=== PATIENT | male | born 1985 | race Caucasian/White ===

== ENCOUNTER 2020-09-30 12:46 | Emergency (ER) | payer MEDICAID, OTHER, SELFPAY ==
[2020-09-30 13:15] VITALS: BP 128/78; PULSE 78; RESP 18; TEMP 36.6; O2SAT 99; BMI 29.0
--- NOTE | 2020-09-30 13:19 | ED_ITS ---
HPI - Back Pain/Injury General Chief Complaint: Back Pain/Injury Stated Complaint: back pain (fall) Time Seen by Provider: 09/30/20 13:19 History of Present Illness HPI Narrative: Patient is a 35 year old male status post accidental fall yesterday. Complaining of pain to the left forearm to the left lower back. There is no bowel urinary incontinence. No head injury. No nausea no vomiting. No focal weakness. Patient is from home. No chest pain or shortness of breath no diaphoresis. No fever no chills no cough no congestion or upper respiratory symptoms pain is worse with movement. Patient denies any focal weakness. Ambulated to the emergency department. The pain is worse with certain movement. Improved with staying still. Related Data Previous Rx's Medication Instructions Recorded ibuprofen 400 mg PO Q6H PRN #20 tab 09/30/20 Allergies Allergy/AdvReac Type Severity Reaction Status Date / Time No Known Allergies Allergy Verified 09/30/20 13:15 Review of Systems Review of Systems: Constitutional: No Weight loss, No Fever, No Chills, No Night Sweats, No Fatigue, No Malaise ENT/Mouth: No Hearing loss, No Ear Pain, No Nasal Congestion, No Sinus Pain, No Hoarseness, No sore throat, No Rhinorrhea, No Swallowing Difficulty Eyes: No Eye Pain, No Swelling, No Redness, No Foreign Body, No Discharge, No Vision Changes Cardiovascular: No Chest Pain, No SOB, No Dyspnea on Exertion, No Orthopnea, No Edema, No Palpitations Respiratory: No Cough, No Sputum, No Wheezing, No Smoke Exposure, No Dyspnea Gastrointestinal: No Nausea, No Vomiting, No Diarrhea, No Constipation, No abdominal Pain, No Hematochezia, No Melena Genitourinary: no irregular bleeding, No Dysuria, No Urinary Frequency, No Hematuria, No Urinary Incontinence, No Urgency, No Flank Pain, No Urinary Flow Changes, No Hesitancy Musculoskeletal: Positive back pain Skin: No Skin Lesions, No rash Neuro: No Weakness, No Numbness, No Paresthesias, No Loss of Consciousness, No Dizziness, No Headache Psych: No Anxiety/Panic, No Depression, No SI/HI/AH/VH, No Social Issues, Heme/Lymph: No Bruising, No Bleeding,No Lymphadenopathy Endocrine: No Polyuria, No Polydipsia, No Temperature Intolerance [facility] Past Medical History Attestation statement: The following information was validated with the patient. Medical History Diabetes High blood pressure Physical Exam Vital Signs: Vital Signs: Last Vital Signs Temp 97.8 F 09/30/20 13:15 Pulse 78 09/30/20 13:15 Resp 18 09/30/20 13:15 BP 128/78 09/30/20 13:15 Pulse Ox 99 09/30/20 13:15 Body Mass Index 29.0 Appearance: Alert. Oriented X3. No acute distress. Eyes: Pupils equal, round and reactive to light. ENT: Pharynx normal. Neck: Normal inspection. Neck supple. No lymph nodes noted. No crepitus CVS: Normal heart rate and rhythm. Pulses normal. Normal S1 and S2 Respiratory: No respiratory distress. Breath sounds normal. No Wheezing. No rales Abdomen: Soft and nontender. No rigidity. No distention. good BS x4 Skin: Skin warm and dry. Normal skin color. Normal skin turgor. Back exam examination the back grossly show paraspinal muscle tenderness on the left side. There is no spinal tenderness elicited on palpation. Sensation distal extremity intact. Reflexes 2+ at patella. Extremities: No lower extremity edema. Neurovascular intact to all extremities. No Lacerations. No Rash Neuro: Oriented X 3. No motor deficit. No sensory deficit. Moving all extermities. No slurred speech MDM - Back Pain/Injury MDM Narrative Medical decision making narrative: Patient's forearm completely normal. There is no evidence of any anatomical snuffbox tenderness. There is no weakness. Range of motion intact with no swelling no signs trauma. Patient is back showed no spinal tenderness. Paraspinal muscle tenderness on the left. No bowel urinary incontinence no focal weakness no signs of cortical INR. Patient well- appearing will discharge home Motrin for pain. Currently in stable condition. Discharge Plan Discharge Clinical Impression: Strain of lumbar region Patient Disposition: Home, Self-Care Instructions: Back Pain (ED) Prescriptions: New ibuprofen 400 mg tablet 400 mg PO Q6H PRN (Reason: pain) Qty: 20 RF: 0 Referrals: Physician,Unknown [Primary Care Provider] - 2 days Print Language: Panamanian
== END 2020-09-30 13:31 | disposition home or self-care (01) ==
LOC: HO.ED 13:27
PROVIDERS: Emergency Provider Emergency Medicine Emergency Medical Services
DX: S39.012A Strain of muscle, fascia and tendon of lower back, initial encounter (principal); R53.1 Weakness; X58.XXXA Exposure to other specified factors, initial encounter; Y93.9 Activity, unspecified; Y92.9 Unspecified place or not applicable; Y99.9 Unspecified external cause status
CPT/HCPCS: 99283

== ENCOUNTER 2020-11-15 19:12 | Emergency (ER) | payer MEDICAID, OTHER, SELFPAY ==
--- NOTE | ~2020-11-15 | CT_ITS ---
EXAMINATION: CT ABDOMEN AND PELVIS WITHOUT CONTRAST CLINICAL INFORMATION: Right groin pain COMPARISON: None TECHNIQUE: Multidetector volumetric imaging was performed from the superior aspect of the liver through the pubic symphysis. Sagittal and coronal reformatted images were obtained on the technologist's workstation. This CT examination was performed using dose optimization techniques as appropriate, variously including the following: *Automated exposure control *Adjustment of mA and/or kV according to patient size (this includes techniques or standardized protocols for targeted exams where dose is matched to indication/reason for exam; i.e. extremities or head) *Use of iterative reconstruction technique DLP: 603 mGy-cm FINDINGS: LUNG BASES: The visualized lung bases are unremarkable. LIVER, GALLBLADDER, AND BILIARY TREE: The liver is normal in size, shape, and attenuation. No focal hepatic lesion or biliary ductal dilatation is present. Gallbladder unremarkable. PANCREAS: Unremarkable. SPLEEN: Unremarkable. ADRENAL GLANDS: Unremarkable. KIDNEYS AND URETERS: The kidneys are normal in size, shape, and attenuation. No hydronephrosis, hydroureter, or calculi seen. No perinephric stranding. BLADDER: Unremarkable. GASTROINTESTINAL TRACT: The small and large bowel are unremarkable. The appendix is unremarkable. ABDOMINAL WALL: No significant hernia is appreciated. LYMPH NODES: Normal. VASCULAR: Unremarkable. PELVIC VISCERA: Unremarkable. OSSEOUS STRUCTURES: Unremarkable. CT/CT abdomen pelvis wo con IMPRESSION: No significant abnormality.
[2020-11-15 19:15] VITALS: BP 141/97; PULSE 111; RESP 18; TEMP 36.6; O2SAT 96; BMI 29.2
[2020-11-15 19:33] VITALS: BP 149/102; PULSE 106; RESP 17; TEMP 37.2; O2SAT 98
--- NOTE | 2020-11-15 19:45 | ED.GENADULT ---
HPI - General Adult General Chief complaint: General Medical Stated complaint: LOWER ABD PAIN Time Seen by Provider: 11/15/20 19:43 Source: patient and presser automatic Mode of arrival: ambulatory Limitations: no limitations History of Present Illness HPI narrative: 35 years old male came in with right groin pain, pain started 8 days ago, patient described pain as severe (8/10), localized to the right groin area, sometimes it radiates to the right lower back, movement or straining make it worse, nothing make it better, describes the pain as constant, no other associated symptoms i.e. no hematuria, no dysuria, no penile discharge, no nausea, no vomiting. Pain started after carrying heavy boxes of frozen chicken. Related Data Previous Rx's Medication Instructions Recorded ibuprofen 400 mg PO Q6H PRN #20 tab 09/30/20 Allergies Allergy/AdvReac Type Severity Reaction Status Date / Time No Known Allergies Allergy Verified 09/30/20 13:15 Review of Systems Review of Systems: All other systems are reviewed and are negative Constitutional: Reports as per HPI and Reports no additional constitutional complaints Eyes: Reports as per HPI and Reports no additional eye complaints Reports system reviewed and no additional complaints, except as documented Cardiovascular: Reports as per HPI and Reports no additional cardiovascular complaints Respiratory: Reports as per HPI and Reports no additional respiratory complaints Gastrointestinal: Reports as per HPI and Reports no additional gastrointestinal complaints Genitourinary: Reports no additional female genitourinary complaints Musculoskeletal: Reports no additional musculoskeletal complaints Skin/Breast: Reports system reviewed and no additional complaints, except as docu Psychiatric: Reports no additional psychiatric complaints Endocrine: Reports no additional endocrine complaints Hematologic/Lymphatic: Reports no additional hematologic/lymphatic complaints Allergic/Immunologic: Reports no additional allergic/immunologic complaints Reports system reviewed and no additional complaints, except as documented and Reports Abnormal speech present [facility] Past Medical History Medical History Diabetes High blood pressure HLD (hyperlipidemia) Social History Social History Alcohol intake: former Smoking Status: Never smoker Use of substances other than those prescribed or required for medical reasons: No Advance Directives: No Advance Directives Information Provided: No Physical Exam Vital Signs: Vital Signs: Last Vital Signs Temp 98.9 F 11/15/20 19:33 Pulse 106 H 11/15/20 19:33 Resp 17 11/15/20 19:33 BP 149/102 H 11/15/20 19:33 Pulse Ox 98 11/15/20 19:33 Body Mass Index 29.2 Vital signs have been reviewed as normal and appeared to be correct. Blood pressure in the high range. Heart rate is tachycardic. Respiration rate normal. Temperature normal. Oxygen saturation normal. Appearance: Alert. Oriented X3. No acute distress. Head: Normal external exam. Normocephalic. Atraumatic. No Lucero signs noted. No raccoon eyes noted Eyes: PERRLA. EOMI. Conjunctiva and sclera normal. Eyelids normal. ENT: EAC normal. TM's Normal. Pharynx normal. Uvula midline. Moist mucous membranes. No trismus noted. No drooling noted. No muffled voice noted. Neck: Normal inspection. Neck supple. FROM. No adenopathy. Thyroid Normal. No meningeal signs. No neck mass noted. CVS: Normal heart rate and rhythm. Heart sound normal. No murmurs noted. Pulses normal throughout. Respiratory: No respiratory distress. Painless inspiration. Breath sounds normal. No wheezes/rales/rhonchi noted. Chest nontender. No accessory muscle usage noted or decreased air movement noted. Abdomen: Soft and tenderness to the right groin area, no rebound tenderness, no guarding.. Bowel sounds normal in all 4 quadrants. No distention noted. No organomegaly noted. No visible injury noted. exam: No testicular pain or swelling, cremasteric reflex is intact. Back: No CVA tenderness. Full range of motion noted. Skin: Skin warm and dry. Normal skin color. Normal skin turgor. No rashes/lesions/lacerations noted. Extremities: No lower extremity edema. Extremities exhibit normal range of motion. Extremities nontender. Neuro: Oriented X 3. No motor deficit. No sensory deficit. Reflexes normal. Course Course Course Narrative: Assessment and plan. 35-year-old male came in with right groin pain clinical exam and findings are consistent with a new femoral ligament sprain. Patient was instructed to apply heating pad, rest, NSAIDs. Hyperglycemia patient was treated with normal saline/insulin glucose is normalized now. Medical Decision Making Lab Data Lab results reviewed: Yes I reviewed the patient's lab results. Result diagrams: 11/15/20 19:57 11/15/20 19:57 Labs: Lab Results 11/15/20 11/15/20 11/15/20 Range/Units 19:54 19:57 19:57 WBC 9.2 (4.8-10.8) X10*3/uL RBC 5.45 (4.60-5.80) X10*6/uL Hgb 16.6 (14.0-18.0) g/dl Hct 47.1 (42-52) % MCV 86.4 (80-98) fL MCH 30.5 (27.0-33.0) pg MCHC 35.2 (31.0-36.0) g/dl RDW 11.7 (11.0-16.0) % Plt Count 217 (160-400) X10*3/uL MPV 11.3 (9.4-12.4) fL Immature Gran % (Auto) 0.1 (0.0-0.4) % Neut % (Auto) 54.1 (45-73) % Lymph % (Auto) 36.4 (20-40) % [place] % (Auto) 7.1 (2-11) % Eos % (Auto) 1.6 (0-4) % Baso % (Auto) 0.7 (0-2) % Lymph # (Auto) 3.3 (1.2-4.9) X10*3/uL [place] # (Auto) 0.7 (0.1-1.2) X10*3/uL Eos # (Auto) 0.2 (0.0-0.4) X10*3/uL Baso # (Auto) 0.1 (0.0-0.2) X10*3/uL Abs Immat Gran (auto) 0.01 (0.00-0.03) X10*3/uL Absolute Neuts (auto) 5.0 (2.0-8.3) X10*3/uL Absolute Nucleated RBC 0.000 (0.0-0.012) X10*3/uL Nucleated RBC % (auto) 0.0 (0.0-0.2) /100WBC Sodium 134 L (135-145) mmol/L Potassium 4.3 (3.3-5.1) mmol/L Chloride 98 (96-108) mmol/L Carbon Dioxide 23 (22-29) mmol/L Anion Gap 17 (12-20) BUN 14 (9-16) mg/dL Creatinine 0.81 (0.5-1.4) mg/dL Estim Creat Clear Calc 125.2 Estimated GFR > 60 POC Glucose (60-115) mg/dL Random Glucose 402 H* (60-115) mg/dL Calcium 9.5 (8.4-10.2) mg/dL Total Bilirubin 1.0 (0.0-1.0) mg/dL Direct Bilirubin 0.3 (0.0-0.5) mg/dL AST 17 (5-37) U/L ALT 40 (0-40) U/L Alkaline Phosphatase 97 (39-117) U/L Total Protein 8.0 (6.5-8.0) g/dL Albumin 4.7 (3.5-5.0) g/dL Lipase 41 (8-78) U/L Urine Color YELLOW Urine Appearance CLEAR Urine pH 5.5 (5.0-8.0) Ur Specific [place] 1.010 (1.005-1.025) Urine Protein NEG (NEG-TRACE) MG/DL Urine Glucose (UA) >=1000 H (NEG) MG/DL Urine Ketones NEG (NEG) MG/DL Urine Blood NEG (NEG) Urine Nitrite NEG (NEG) Ur Leukocyte Esterase NEG (NEG) Urine RBC 0 (0) /HPF Urine WBC 0 (0-4) /HPF Ur Squamous Epith Cells NONE /LPF Urine Bacteria NONE /LPF 11/15/20 Range/Units 21:39 WBC (4.8-10.8) X10*3/uL RBC (4.60-5.80) X10*6/uL Hgb (14.0-18.0) g/dl Hct (42-52) % MCV (80-98) fL MCH (27.0-33.0) pg MCHC (31.0-36.0) g/dl RDW (11.0-16.0) % Plt Count (160-400) X10*3/uL MPV (9.4-12.4) fL Immature Gran % (Auto) (0.0-0.4) % Neut % (Auto) (45-73) % Lymph % (Auto) (20-40) % [place] % (Auto) (2-11) % Eos % (Auto) (0-4) % Baso % (Auto) (0-2) % Lymph # (Auto) (1.2-4.9) X10*3/uL [place] # (Auto) (0.1-1.2) X10*3/uL Eos # (Auto) (0.0-0.4) X10*3/uL Baso # (Auto) (0.0-0.2) X10*3/uL Abs Immat Gran (auto) (0.00-0.03) X10*3/uL Absolute Neuts (auto) (2.0-8.3) X10*3/uL Absolute Nucleated RBC (0.0-0.012) X10*3/uL Nucleated RBC % (auto) (0.0-0.2) /100WBC Sodium (135-145) mmol/L Potassium (3.3-5.1) mmol/L Chloride (96-108) mmol/L Carbon Dioxide (22-29) mmol/L Anion Gap (12-20) BUN (9-16) mg/dL Creatinine (0.5-1.4) mg/dL Estim Creat Clear Calc Estimated GFR POC Glucose 134 H (60-115) mg/dL Random Glucose (60-115) mg/dL Calcium (8.4-10.2) mg/dL Total Bilirubin (0.0-1.0) mg/dL Direct Bilirubin (0.0-0.5) mg/dL AST (5-37) U/L ALT (0-40) U/L Alkaline Phosphatase (39-117) U/L Total Protein (6.5-8.0) g/dL Albumin (3.5-5.0) g/dL Lipase (8-78) U/L Urine Color Urine Appearance Urine pH (5.0-8.0) Ur Specific [place] (1.005-1.025) Urine Protein (NEG-TRACE) MG/DL Urine Glucose (UA) (NEG) MG/DL Urine Ketones (NEG) MG/DL Urine Blood (NEG) Urine Nitrite (NEG) Ur Leukocyte Esterase (NEG) Urine RBC (0) /HPF Urine WBC (0-4) /HPF Ur Squamous Epith Cells /LPF Urine Bacteria /LPF Imaging Data CT scan - abdomen: Radiologist's impression: No significant abnormality. Discharge Plan Discharge Clinical Impression: Acute hyperglycemia Iliofemoral (ligament) sprain Qualifiers: Encounter type: initial encounter Laterality: right Qualified Code(s): S73.111A - Iliofemoral ligament sprain of right hip, initial encounter Patient Disposition: Home, Self-Care Instructions: Hip Sprain (ED) Additional Instructions: Follow-up with your primary doctor in 1 week. Prescriptions: No Action ibuprofen 400 mg tablet 400 mg PO Q6H PRN (Reason: pain) Qty: 20 RF: 0 Stand Alone Forms: Work/School Release Interventions: ED Discharge Assessment Last Done: 11/15/20 23:06 Discharge Date/Time: 11/15/20 23:06
[2020-11-15] MEDS: Ibuprofen 600 MG TABLET PO (19:51)
[2020-11-15 20:00] LABS: MANUAL DIFF FLAG NO
[2020-11-15 20:03] LABS: Appearance Urine CLEAR; Color Urine YELLOW; Glucose Urine UA >=1000 MG/DL (NEG); Leukocyte Esterase Urine NEG (NEG); Nitrite Urine NEG (NEG); PH 5.5 (5.0-8.0); Urine Blood NEG (NEG); Urine Ketones NEG (NEG); Urine Protein NEG (NEG-TRACE)
[2020-11-15 20:03] LABS: Basophils Absolute Auto 0.1 X10*3/uL (0.0-0.2); Basophils Percent Auto 0.7 % (0-2); Eosinophils Absolute Auto 0.2 X10*3/uL (0.0-0.4); Eosinophils Percent Auto 1.6 % (0-4); Hematocrit 47.1 % (42-52); Hemoglobin 16.6 g/dl (14.0-18.0); Imm Gran Abs Auto 0.01 X10*3/uL (0.00-0.03); Imm Gran Pct Auto 0.1 % (0.0-0.4); Lymphocytes Absolute Auto 3.3 X10*3/uL (1.2-4.9); Lymphocytes Percent Auto 36.4 % (20-40); Mean Corpuscular HGB Conc 35.2 g/dl (31.0-36.0); Mean Corpuscular Hemoglobin 30.5 pg (27.0-33.0); Mean Corpuscular Volume 86.4 fL (80-98); Mean Platelet Volume 11.3 fL (9.4-12.4); Monocytes Absolute Auto 0.7 X10*3/uL (0.1-1.2); Monocytes Percent Auto 7.1 % (2-11); Neutrophils Percent Auto 54.1 % (45-73); Platelet Count 217 X10*3/uL (160-400); Red Blood Count 5.45 X10*6/uL (4.60-5.80); Red Cell Distribution Width 11.7 % (11.0-16.0); White Blood Count 9.2 X10*3/uL (4.8-10.8)
[2020-11-15 20:15] LABS: RBC Urine 0 /HPF (0); WBC Urine 0 /HPF (0-4)
[2020-11-15 20:37] LABS: Alanine Aminotransferase 40 U/L (0-40); Albumin Level 4.7 g/dL (3.5-5.0); Alkaline Phosphatase 97 U/L (39-117); Anion Gap 17 (12-20); Aspartate Amino Transferase 17 U/L (5-37); Bilirubin Direct 0.3 mg/dL (0.0-0.5); Blood Urea Nitrogen 14 mg/dL (9-16); Calcium 9.5 mg/dL (8.4-10.2); Carbon Dioxide 23 mmol/L (22-29); Chloride 98 mmol/L (96-108); Creatinine Clr Calc Pharmacy 125.2; Estimated Glomerular Filt Rate > 60; Glucose Random 402 mg/dL (60-115); Lipase 41 U/L (8-78); Potassium 4.3 mmol/L (3.3-5.1); Sodium 134 mmol/L (135-145)
[2020-11-15] MEDS: 0.9 % Sodium Chloride 1,000 ML 999 ML IVCONT (21:07)
[2020-11-15] MEDS: Insulin Regular, Human 100 UNIT/ML 3 ML VIAL 10 UNIT IVPUSH (21:10)
[2020-11-15 21:43] LABS: Glucose, Whole Blood 134 mg/dL (60-115)
== END 2020-11-15 23:06 | disposition home or self-care (01) ==
PROVIDERS: Emergency Provider Emergency Medicine; PCP Internal Medicine
DX: S73.111A Iliofemoral ligament sprain of right hip, initial encounter (principal); E11.65 Type 2 diabetes mellitus with hyperglycemia; R10.31 Right lower quadrant pain; X50.0XXA Overexertion from strenuous movement or load, initial encounter; X50.3XXA Overexertion from repetitive movements, initial encounter; Y93.9 Activity, unspecified; Y92.9 Unspecified place or not applicable; Y99.9 Unspecified external cause status; Z79.899 Other long term (current) drug therapy
CPT/HCPCS: 36415; 74176; 80048; 80076; 81001; 81003; 82947; 83690; 85025; 96361; 96374; 99284

== ENCOUNTER 2021-01-07 19:17 | Emergency (ER) | payer MEDICAID, OTHER, SELFPAY ==
--- NOTE | ~2021-01-07 | CT_ITS ---
EXAMINATION: CT ABDOMEN AND PELVIS WITHOUT CONTRAST CLINICAL INFORMATION: Right groin pain. COMPARISON: None TECHNIQUE: Multidetector volumetric imaging was performed from the superior aspect of the liver through the pubic symphysis. Sagittal and coronal reformatted images were obtained on the technologist's workstation. This CT examination was performed using dose optimization techniques as appropriate, variously including the following: *Automated exposure control *Adjustment of mA and/or kV according to patient size (this includes techniques or standardized protocols for targeted exams where dose is matched to indication/reason for exam; i.e. extremities or head) *Use of iterative reconstruction technique DLP: 665 mGy-cm FINDINGS: LUNG BASES: The visualized lung bases are unremarkable. LIVER, GALLBLADDER, AND BILIARY TREE: The liver is normal in size, shape, and attenuation. No focal hepatic lesion or biliary ductal dilatation is present. The gallbladder is unremarkable with no evidence of radiopaque gallstones, gallbladder wall thickening, or obvious pericholecystic inflammatory changes. PANCREAS: Unremarkable. SPLEEN: Unremarkable. ADRENAL GLANDS: Unremarkable. KIDNEYS AND URETERS: The kidneys are normal in size, shape, and attenuation. No hydronephrosis, hydroureter, or calculi seen. No perinephric stranding. BLADDER: Unremarkable. GASTROINTESTINAL TRACT: There is moderate stool in the colon without distention. The small bowel loops are normal caliber. There is distended with recently ingested food. ABDOMINAL WALL: No significant hernia is appreciated. LYMPH NODES: Normal. VASCULAR: Unremarkable. PELVIC VISCERA: Unremarkable. OSSEOUS STRUCTURES: Unremarkable. CT/CT abdomen pelvis wo con IMPRESSION: No acute intra-abdominal process seen.
[2021-01-07 19:48] VITALS: BP 132/86; PULSE 104; RESP 18; TEMP 36.8; O2SAT 98; BMI 29.2
--- NOTE | 2021-01-07 21:48 | ED.ABDPAIN ---
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 no hematuria, no dysuria, no penile discharge, no nausea, no vomiting. Pain started after carrying heavy boxes of frozen chicken. Patient was seen before for similar presentation was diagnosis with right groin sprain. Related Data Previous Rx's Medication Instructions Recorded ibuprofen 400 mg PO Q6H PRN #20 tab 09/30/20 Allergies Allergy/AdvReac Type Severity Reaction Status Date / Time No Known Allergies Allergy Verified 09/30/20 13:15 Review of Systems Review of Systems All other systems are reviewed and are negative Constitutional: Reports as per HPI and Reports no additional constitutional complaints Eyes: Reports as per HPI and Reports no additional eye complaints Reports system reviewed and no additional complaints, except as documented Cardiovascular: Reports as per HPI and Reports no additional cardiovascular complaints Respiratory: Reports as per HPI and Reports no additional respiratory complaints Gastrointestinal: Reports as per HPI and Reports no additional gastrointestinal complaints Genitourinary: Reports no additional female genitourinary complaints Musculoskeletal: Reports no additional musculoskeletal complaints Skin/Breast: Reports system reviewed and no additional complaints, except as docu Psychiatric: Reports no additional psychiatric complaints Endocrine: Reports no additional endocrine complaints Hematologic/Lymphatic: Reports no additional hematologic/lymphatic complaints Allergic/Immunologic: Reports no additional allergic/immunologic complaints Reports system reviewed and no additional complaints, except as documented and Reports Abnormal speech present Physical Exam Vital Signs: Vital Signs: Last Vital Signs Temp 98.2 F 01/07/21 19:48 Pulse 104 H 01/07/21 19:48 Resp 18 01/07/21 19:48 BP 132/86 01/07/21 19:48 Pulse Ox 98 01/07/21 19:48 Body Mass Index 29.2 Vital signs have been reviewed as appeared to be correct. Blood pressure normal. Heart rate is elevated. Respiration rate normal. Temperature normal. Oxygen saturation normal. Appearance: Alert. Oriented X3. No acute distress. Head: Normal external exam. Normocephalic. Atraumatic. No Lucero signs noted. No raccoon eyes noted Eyes: PERRLA. EOMI. Conjunctiva and sclera normal. Eyelids normal. ENT: TM's Normal. Pharynx normal. Uvula midline. Moist mucous membranes. No trismus noted. No drooling noted. No muffled voice noted. Neck: Normal inspection. Neck supple. FROM. No adenopathy. Thyroid Normal. No meningeal signs. No neck mass noted. CVS: Normal heart rate and rhythm. Heart sound normal. No murmurs noted. Pulses normal throughout. Respiratory: No respiratory distress. Painless inspiration. Breath sounds normal. No wheezes/rales/rhonchi noted. Chest nontender. No accessory muscle usage noted or decreased air movement noted. Abdomen: Soft, mild tenderness in the right inguinal hernia, no rebound, no guarding, no palpable mass. Bowel sounds normal in all 4 quadrants. No distention noted. No organomegaly noted. No visible injury noted. : Normal circumcised sized external genitalia, no scrotal tenderness, positive cremasteric reflexes bilaterally grossly intact. Back: No CVA tenderness. Full range of motion noted. Skin: Skin warm and dry. Normal skin color. Normal skin turgor. No rashes/lesions/lacerations noted. Extremities: No lower extremity edema. Extremities exhibit normal range of motion. Extremities nontender. Neuro: Oriented X 3. No motor deficit. No sensory deficit. Reflexes normal. Course Course Course Narrative: Assessment and plan. 35-year-old male came in with right groin strain patient work carry heavy boxes, CT of the abdomen pelvis ruled out inguinal hernia, labs are unremarkable except for slight hyperglycemia. As patient was instructed to use ibuprofen, heating pad, rest. MDM - Abdominal Pain Lab Data Attestation: I reviewed the patient's lab results. Result diagrams: 01/07/21 21:59 01/07/21 21:59 Labs: Lab Results 01/07/21 01/07/21 01/07/21 Range/Units 21:59 21:59 22:18 WBC 9.0 (4.8-10.8) X10*3/uL RBC 5.14 (4.60-5.80) X10*6/uL Hgb 15.5 (14.0-18.0) g/dl Hct 44.7 (42-52) % MCV 87.0 (80-98) fL MCH 30.2 (27.0-33.0) pg MCHC 34.7 (31.0-36.0) g/dl RDW 11.8 (11.0-16.0) % Plt Count 247 (160-400) X10*3/uL MPV 10.5 (9.4-12.4) fL Immature Gran % (Auto) 0.2 (0.0-0.4) % Neut % (Auto) 47.0 (45-73) % Lymph % (Auto) 43.7 H (20-40) % [place] % (Auto) 6.7 (2-11) % Eos % (Auto) 2.0 (0-4) % Baso % (Auto) 0.4 (0-2) % Lymph # (Auto) 3.9 (1.2-4.9) X10*3/uL [place] # (Auto) 0.6 (0.1-1.2) X10*3/uL Eos # (Auto) 0.2 (0.0-0.4) X10*3/uL Baso # (Auto) 0.0 (0.0-0.2) X10*3/uL Abs Immat Gran (auto) 0.02 (0.00-0.03) X10*3/uL Absolute Neuts (auto) 4.2 (2.0-8.3) X10*3/uL Absolute Nucleated RBC 0.000 (0.0-0.012) X10*3/uL Nucleated RBC % (auto) 0.0 (0.0-0.2) /100WBC Sodium 135 (135-145) mmol/L Potassium 4.0 (3.3-5.1) mmol/L Chloride 101 (96-108) mmol/L Carbon Dioxide 24 (22-29) mmol/L Anion Gap 14 (12-20) BUN 19 H (9-16) mg/dL Creatinine 0.76 (0.5-1.4) mg/dL Estim Creat Clear Calc 133.4 Estimated GFR > 60 Random Glucose 184 H D (60-115) mg/dL Calcium 8.9 D (8.4-10.2) mg/dL Total Bilirubin 1.0 (0.0-1.0) mg/dL Direct Bilirubin 0.3 (0.0-0.5) mg/dL AST 28 D (5-37) U/L ALT 61 H (0-40) U/L Alkaline Phosphatase 87 (39-117) U/L Total Protein 7.9 (6.5-8.0) g/dL Albumin 4.5 (3.5-5.0) g/dL Lipase 25 (8-78) U/L Urine Color YELLOW Urine Appearance CLEAR Urine pH 7.0 (5.0-8.0) Ur Specific [place] 1.020 (1.005-1.025) Urine Protein NEG (NEG-TRACE) MG/DL Urine Glucose (UA) 500 H (NEG) MG/DL Urine Ketones NEG (NEG) MG/DL Urine Blood NEG (NEG) Urine Nitrite NEG (NEG) Ur Leukocyte Esterase NEG (NEG) Imaging Data CT scan - abdomen: Radiologist's impression: No acute intra-abdominal process seen. Discharge Plan Discharge Prescriptions: No Action ibuprofen 400 mg tablet 400 mg PO Q6H PRN (Reason: pain) Qty: 20 RF: 0 PMFSH Past Medical History Medical History Diabetes High blood pressure HLD (hyperlipidemia) Social History Social History Alcohol intake: former Smoking Status: Never smoker Advance Directives: No Advance Directives Information Provided: No
[2021-01-07 22:11] LABS: MANUAL DIFF FLAG NO
[2021-01-07 22:17] LABS: Basophils Percent Auto 0.4 % (0-2); Eosinophils Absolute Auto 0.2 X10*3/uL (0.0-0.4); Hematocrit 44.7 % (42-52); Hemoglobin 15.5 g/dl (14.0-18.0); Imm Gran Abs Auto 0.02 X10*3/uL (0.00-0.03); Imm Gran Pct Auto 0.2 % (0.0-0.4); Lymphocytes Absolute Auto 3.9 X10*3/uL (1.2-4.9); Lymphocytes Percent Auto 43.7 % (20-40); Mean Corpuscular HGB Conc 34.7 g/dl (31.0-36.0); Mean Corpuscular Hemoglobin 30.2 pg (27.0-33.0); Mean Platelet Volume 10.5 fL (9.4-12.4); Monocytes Absolute Auto 0.6 X10*3/uL (0.1-1.2); Monocytes Percent Auto 6.7 % (2-11); Neutrophils Absolute Auto 4.2 X10*3/uL (2.0-8.3); Platelet Count 247 X10*3/uL (160-400); Red Blood Count 5.14 X10*6/uL (4.60-5.80); Red Cell Distribution Width 11.8 % (11.0-16.0)
[2021-01-07 22:30] LABS: Glucose Urine UA 500 MG/DL (NEG); Leukocyte Esterase Urine NEG (NEG); Nitrite Urine NEG (NEG); Urine Blood NEG (NEG); Urine Ketones NEG (NEG); Urine Protein NEG (NEG-TRACE)
[2021-01-07 22:31] LABS: Appearance Urine CLEAR; Color Urine YELLOW
[2021-01-07 22:47] LABS: Alanine Aminotransferase 61 U/L (0-40); Albumin Level 4.5 g/dL (3.5-5.0); Alkaline Phosphatase 87 U/L (39-117); Anion Gap 14 (12-20); Aspartate Amino Transferase 28 U/L (5-37); Bilirubin Direct 0.3 mg/dL (0.0-0.5); Blood Urea Nitrogen 19 mg/dL (9-16); Calcium 8.9 mg/dL (8.4-10.2); Carbon Dioxide 24 mmol/L (22-29); Chloride 101 mmol/L (96-108); Creatinine Clr Calc Pharmacy 133.4; Estimated Glomerular Filt Rate > 60; Glucose Random 184 mg/dL (60-115); Lipase 25 U/L (8-78); Sodium 135 mmol/L (135-145); Total Protein 7.9 g/dL (6.5-8.0)
== END 2021-01-07 23:28 | disposition home or self-care (01) ==
PROVIDERS: Emergency Provider Emergency Medicine
DX: S76.811A Strain of other specified muscles, fascia and tendons at thigh level, right thigh, initial encounter (principal); X50.0XXA Overexertion from strenuous movement or load, initial encounter; I10 Essential (primary) hypertension; E11.9 Type 2 diabetes mellitus without complications; E78.5 Hyperlipidemia, unspecified; Y93.9 Activity, unspecified; Y92.9 Unspecified place or not applicable; Y99.9 Unspecified external cause status
CPT/HCPCS: 36415; 74176; 80048; 80076; 81003; 83690; 85025; 99283; 99284

== ENCOUNTER 2021-01-14 22:08 | Emergency (ER) | payer MEDICAID, SELFPAY ==
--- NOTE | ~2021-01-14 | US_ITS ---
EXAMINATION: US RIGHT GROIN, LIMITED/FOLLOW UP CLINICAL INFORMATION: Question of right inguinal hernia COMPARISON: CT 01/07/2021 and 11/15/2020 TECHNIQUE: Linear probe was used to examine the area of concern in the right groin. FINDINGS: There is a solid appearing area measuring 3.9 x 1.8 cm in the region of the right groin. In retrospect, there is an area of increased density seen in the fat on the CT scan in the supra inguinal region on the CT scan measuring 3.6 x 3.5 x 2.5 cm which correlates with this. This is not a hernia (at least not on the CT scan) but may be a lipoma or an area of inflammation in the fat. On the CT scan from 11/15/2020 this was smaller and barely apparent. US/US pelvic limited IMPRESSION: There is a somewhat ill-defined mass present in the right lower quadrant which appears to correlate with an area of higher density seen in the a rounded area of fat in the mesentery just behind the abdominal wall. This has increased in size from 11/15/2020 to 01/07/2021. This probably represents a lipoma or possibly a focal area of inflammation in the fat. If pain continues, would recommend MRI for further evaluation.
[2021-01-14 22:14] VITALS: BP 142/70; BP 143/87; PULSE 106; PULSE 98; RESP 17; TEMP 36.8; O2SAT 97; O2SAT 98; BMI 31.1
--- NOTE | 2021-01-14 22:42 | PC.NURSE ---
THIS NURSE AT BEDSIDE WITH DR BOSS FOR EXAM OF GROIN PAIN.
--- NOTE | 2021-01-14 22:46 | ED.MALEGU ---
HPI - Male Genitourinary General Chief complaint: General Medical Stated complaint: BILATERAL LEG PAIN,WEAKNESS Time Seen by Provider: 01/14/21 22:45 Source: patient Mode of arrival: ambulatory Limitations: no limitations History of Present Illness HPI Narrative: Patient been having pain in right groin area since 11/27 after lifting heavy stuff been here [address] scan were done both were negative last visit was 01/07 patient still complaining of pain and swelling specially on standing on the right suprapubic area. No nausea no vomiting no urinary complaints Related Data Previous Rx's Medication Instructions Recorded ibuprofen 400 mg PO Q6H PRN #20 tab 09/30/20 cyclobenzaprine 10 mg PO TID PRN #14 tab 01/07/21 ibuprofen 600 mg PO Q8H PRN #20 tab 01/07/21 doxycycline hyclate 100 mg PO BID #20 cap 01/15/21 ibuprofen 600 mg PO Q6H PRN #20 tab 01/15/21 Allergies Allergy/AdvReac Type Severity Reaction Status Date / Time No Known Allergies Allergy Verified 09/30/20 13:15 Review of Systems Review of Systems: Constitutional : No Weight loss, No Fever, No Chills ENT/Mouth : No sore throat, No Rhinorrhea Eyes: No Eye Pain, No Swelling Cardiovascular : No Chest Pain, no palpitations Respiratory : No Cough, No Sputum, no shortness of breath Gastrointestinal : no Nausea, No Vomiting, No Diarrhea, +abdominal Pain, no black stools Genitourinary : No Dysuria, No Urinary Frequency Musculoskeletal : No joint pain, No Myalgias, No Joint Swelling Skin : No Skin Lesions, No rash Neuro : No Weakness, No Numbness, No Dizziness, No Headache Psych : No Anxiety/Panic, No Depression Heme/Lymph: No Bruising, No Lymphadenopathy Endocrine : No Polyuria, No Polydipsia All other systems reviewed and are negative [facility] Past Medical History Medical History Diabetes High blood pressure HLD (hyperlipidemia) Social History Social History Alcohol intake: never Smoking Status: Never smoker Smoked in Last 30 Days: No Use of substances other than those prescribed or required for medical reasons: No Advance Directives: No Advance Directives Information Provided: Yes Physical Exam Vital Signs: Vital Signs: Last Vital Signs Temp 98.2 F 01/14/21 22:14 Pulse 108 H 01/15/21 00:30 Resp 16 01/15/21 00:30 BP 142/92 H 01/15/21 00:30 Pulse Ox 97 01/15/21 00:30 Body Mass Index 31.1 Const: General: comfortable and no acute distress HENMT: Head: Yes normocephalic and Yes atraumatic Eyes: General: appearance normal, both eyes and all related structures Neck: Neck: Yes normal visual inspection Resp: Effort & Inspection: normal respiratory effort Auscultation: clear to auscultation bilaterally Cardio: Palpation: normal PMI Rate: regular rate Rhythm: regular rhythm Heart sounds: S1 normal heart sound present and S2 normal heart sound present Peripheral pulses: Peripheral pulses 2+ throughout GI: Inspection: Yes normal to inspection Palpation (GI): Soft to palpation and nontender Auscultation: normal bowel sounds : Male General Exam: Yes normal external exam Penis: normal penis Meatus: meatus normal Scrotum: scrotum normal Testes: Testes normal, testicular lie normal and epididymides normal Male genitals images: 1. About 2 cm non reducible swelling in right suprapubic area ? Lipoma/cyst MDM - Male Genitourinary MDM Narrative Medical decision making narrative: Patient ultrasound showed small fatty tissue inflammation possible lipoma. Will discharge patient home on doxycycline ibuprofen advised to follow-up with surgeon Medical Records Attestation: I reviewed the patient's medical records. Lab Data Attestation: I reviewed the patient's lab results. Labs: Lab Results 01/14/21 Range/Units 22:41 Urine Color STRAW Urine Appearance CLEAR Urine pH 6.0 (5.0-8.0) Ur Specific [place] 1.010 (1.005-1.025) Urine Protein NEG (NEG-TRACE) MG/DL Urine Glucose (UA) >=1000 H (NEG) MG/DL Urine Ketones NEG (NEG) MG/DL Urine Blood NEG (NEG) Urine Nitrite NEG (NEG) Ur Leukocyte Esterase NEG (NEG) Urine RBC 0 (0) /HPF Urine WBC 0-2 (0-4) /HPF Ur Squamous Epith Cells NONE /LPF Urine Bacteria NONE /LPF Imaging Data US - abdomen: Attestation: I personally reviewed and interpreted this imaging study as follows: My impression: Signed Patient: Marlon SanchezMR#: [id number]: [id number]:[id number]/Sex: 35 / MADM Date: 01/14/21Loc: EDAttending Dr: Ordering Physician: Navneet Bradshaw MD Date of Service: 01/14/21 Procedure(s): US pelvic limited Accession Number(s): [id number] cc: Navneet Bradshaw MD~ EXAMINATION: US RIGHT GROIN, LIMITED/FOLLOW UP CLINICAL INFORMATION: Question of right inguinal hernia COMPARISON: CT 01/07/2021 and 11/15/2020 TECHNIQUE: Linear probe was used to examine the area of concern in the right groin. FINDINGS: There is a solid appearing area measuring 3.9 x 1.8 cm in the region of the right groin. In retrospect, there is an area of increased density seen in the fat on the CT scan in the supra inguinal region on the CT scan measuring 3.6 x 3.5 x 2.5 cm which correlates with this. This is not a hernia (at least not on the CT scan) but may be a lipoma or an area of inflammation in the fat. On the CT scan from 11/15/2020 this was smaller and barely apparent. US/US pelvic limited IMPRESSION: There is a somewhat ill-defined mass present in the right lower quadrant which appears to correlate with an area of higher density seen in the a rounded area of fat in the mesentery just behind the abdominal wall. This has increased in size from 11/15/2020 to 01/07/2021. This probably represents a lipoma or possibly a focal area of inflammation in the fat. If pain continues, would recommend MRI for further evaluation. Discharge Plan Discharge Clinical Impression: Lipoma of abdominal wall Patient Disposition: Home, Self-Care Instructions: Lipoma (ED), Soft Tissue Mass (ED) Additional Instructions: Take antibiotics and pain medicine as advised and follow-up with surgeon [place] antibi?ticos y analg?sicos seg?n las recomendaciones y alvina un seguimiento con el cirujano. Prescriptions: New doxycycline hyclate 100 mg capsule 100 mg PO BID Qty: 20 RF: 0 ibuprofen 600 mg tablet 600 mg PO Q6H PRN (Reason: pain) Qty: 20 RF: 0 No Action ibuprofen 400 mg tablet 400 mg PO Q6H PRN (Reason: pain) Qty: 20 RF: 0 cyclobenzaprine 10 mg tablet 10 mg PO TID PRN (Reason: muscle spasm) Qty: 14 RF: 0 ibuprofen 600 mg tablet 600 mg PO Q8H PRN (Reason: pain) Qty: 20 RF: 0 Referrals: Dennis Gonzalez MD [Physician] - 1 week Print Language: Lithuanian
[2021-01-14 22:53] LABS: Glucose Urine UA >=1000 MG/DL (NEG); Leukocyte Esterase Urine NEG (NEG); Nitrite Urine NEG (NEG); Urine Blood NEG (NEG); Urine Ketones NEG (NEG); Urine Protein NEG (NEG-TRACE)
[2021-01-14 23:06] LABS: Appearance Urine CLEAR; Color Urine STRAW
[2021-01-14 23:18] LABS: RBC Urine 0 /HPF (0); WBC Urine 0-2 /HPF (0-4)
[2021-01-15 00:30] VITALS: BP 142/92; PULSE 108; RESP 16; O2SAT 97
[2021-01-15] MEDS: Ibuprofen 600 MG TABLET PO (00:31)
== END 2021-01-15 00:36 | disposition home or self-care (01) ==
PROVIDERS: Emergency Provider Internal Medicine
DX: D17.5 Benign lipomatous neoplasm of intra-abdominal organs (principal); R10.31 Right lower quadrant pain; E11.9 Type 2 diabetes mellitus without complications; E78.5 Hyperlipidemia, unspecified
CPT/HCPCS: 76857; 81001; 81003; 99284

== ENCOUNTER → 2021-02-08 10:49 | Outpatient (BNVA) | payer MEDICAID, SELFPAY | PROVIDERS: PCP Family Medicine; Visit Provider Surgery | DX: R10.31 Right lower quadrant pain (principal) | CPT/HCPCS: 99202 ==

== ENCOUNTER → 2021-02-13 10:45 | Outpatient (BNVA) | payer MEDICAID, SELFPAY | PROVIDERS: PCP Family Medicine; Visit Provider Surgery | DX: K40.90 Unilateral inguinal hernia, without obstruction or gangrene, not specified as recurrent (principal); Z79.899 Other long term (current) drug therapy | CPT/HCPCS: 99212 ==

== ENCOUNTER 2021-02-23 19:10 | Emergency (ER) | payer MEDICAID, OTHER, SELFPAY ==
--- NOTE | ~2021-02-23 | CT_ITS ---
EXAMINATION: CT ABDOMEN AND PELVIS WITH CONTRAST CLINICAL INFORMATION: Right groin pain. Assess for hernia. COMPARISON: CT scan abdomen pelvis 05/09/2021 TECHNIQUE: Multidetector volumetric images were obtained from the superior aspect of the liver through the pubic symphysis following administration 85 mL of Omnipaque 350 intravenous contrast. Sagittal and coronal reformatted images were obtained on the technologist's workstation. Oral contrast: No This CT examination was performed using dose optimization techniques as appropriate, variously including the following: *Automated exposure control *Adjustment of mA and/or kV according to patient size (this includes techniques or standardized protocols for targeted exams where dose is matched to indication/reason for exam; i.e. extremities or head) *Use of iterative reconstruction technique DLP: 666 mGy-cm FINDINGS: LUNG BASES: The visualized lung bases are unremarkable. LIVER, GALLBLADDER, AND BILIARY TREE: Low attenuation of liver parenchyma due to fatty change. No focal liver lesion or intrahepatic bile duct dilatation. The gallbladder is unremarkable with no evidence of radiopaque gallstones, gallbladder wall thickening, or obvious pericholecystic inflammatory changes. PANCREAS: Unremarkable. SPLEEN: Unremarkable. ADRENAL GLANDS: Unremarkable. KIDNEYS AND URETERS: The kidneys are normal in size, shape, and attenuation. No hydronephrosis, hydroureter, or calculi seen. No perinephric stranding. BLADDER: Unremarkable. GASTROINTESTINAL TRACT: The small and large bowel are unremarkable. The appendix is unremarkable. ABDOMINAL WALL: There is a fat-containing right-sided inguinal hernia. This measures 4.2 x 2.9 cm in width. Measures greater than 7 cm of length. Lower margin of the herniated fat is not included in the study. Defect in the inguinal canal measures 1.8 cm transverse coronal image 30 There is no involvement of the bowel. Herniated fat is slightly edematous but there is no focal fluid collection. LYMPH NODES: Normal. VASCULAR: Unremarkable. PELVIC VISCERA: Unremarkable. OSSEOUS STRUCTURES: Unremarkable. CT/CT abdomen pelvis w con IMPRESSION: 1. Fat-containing right inguinal hernia. Herniated fat is slightly edematous but there is no focal fluid collections. There is no involvement with bowel. The bowel is unremarkable. 2. Mild diffuse fatty change of liver.
[2021-02-23 20:23] VITALS: BP 132/90; PULSE 103; RESP 16; TEMP 36.9; O2SAT 96; BMI 29.9
[2021-02-23 21:43] LABS: MANUAL DIFF FLAG NO
[2021-02-23 21:45] LABS: Basophils Absolute Auto 0.1 X10*3/uL (0.0-0.2); Basophils Percent Auto 0.7 % (0-2); Eosinophils Absolute Auto 0.2 X10*3/uL (0.0-0.4); Eosinophils Percent Auto 1.9 % (0-4); Hematocrit 46.8 % (42-52); Hemoglobin 16.5 g/dl (14.0-18.0); Imm Gran Abs Auto 0.03 X10*3/uL (0.00-0.03); Imm Gran Pct Auto 0.3 % (0.0-0.4); Lymphocytes Absolute Auto 4.1 X10*3/uL (1.2-4.9); Lymphocytes Percent Auto 34.6 % (20-40); Mean Corpuscular HGB Conc 35.3 g/dl (31.0-36.0); Mean Corpuscular Hemoglobin 30.3 pg (27.0-33.0); Mean Platelet Volume 10.7 fL (9.4-12.4); Monocytes Absolute Auto 0.8 X10*3/uL (0.1-1.2); Monocytes Percent Auto 6.8 % (2-11); Neutrophils Absolute Auto 6.5 X10*3/uL (2.0-8.3); Neutrophils Percent Auto 55.7 % (45-73); Platelet Count 265 X10*3/uL (160-400); Red Blood Count 5.44 X10*6/uL (4.60-5.80); Red Cell Distribution Width 12.2 % (11.0-16.0); White Blood Count 11.7 X10*3/uL (4.8-10.8)
[2021-02-23 21:51] LABS: Prothrombin Time 12.3 SEC (10.8-13.0)
--- NOTE | 2021-02-23 21:51 | ED_ITS ---
HPI - Abdominal Pain General Chief Complaint: Skin/Abscess/Foreign Body Stated Complaint: Leg swelling/Pain Time Seen by Provider: 02/23/21 21:51 Source: patient Mode of arrival: ambulatory History of Present Illness HPI narrative: 35-year-old male without significant past medical history who presents with 2 years of worsening swelling at the right groin that has progressively worsened with time and now patient states is worse in the morning and increases throughout the day with pain on coughing, standing and currently complains of some mild nausea without vomiting but still able to have bowel movements and pass flatus. Patient denies any fevers but reports chills and denies any urinary pain/burning/frequency. Related Data Previous Rx's Medication Instructions Recorded ibuprofen 400 mg PO Q6H PRN #20 tab 09/30/20 cyclobenzaprine 10 mg PO TID PRN #14 tab 01/07/21 ibuprofen 600 mg PO Q8H PRN #20 tab 01/07/21 doxycycline hyclate 100 mg PO BID #20 cap 01/15/21 ibuprofen 600 mg PO Q6H PRN #20 tab 01/15/21 Allergies Allergy/AdvReac Type Severity Reaction Status Date / Time No Known Allergies Allergy Verified 02/13/21 10:48 Review of Systems Review of Systems Pertinent positives and negatives as stated in HPI 10 point review of systems is otherwise negative. Physical Exam Vital Signs: Vital Signs: Last Vital Signs Temp 98.2 F 02/23/21 22:08 Pulse 100 02/23/21 22:08 Resp 16 02/23/21 22:08 BP 128/90 H 02/23/21 22:08 Pulse Ox 96 02/23/21 22:08 Body Mass Index 29.9 VITAL SIGNS: Reviewed. GENERAL: Well developed, well nourished, in no acute distress. HEAD: Normocephalic/atraumatic EYES: PERRLA, EOMI EARS: Ext canals without abnormality OROPHARYNX: no oral lesions noted, posterior pharynx clear NECK: Supple, no adenopathy LUNGS: Normal breath sounds. No adventitious sounds or accessory muscle use. SpO2<96> CARDIOVASCULAR: Regular rate and rhythm without noted murmurs ABDOMEN: Soft, non-tender, non-distended with bowel sounds. : (Operations Support Analyst-Freddy) obvious swelling over the right inguinal area without overlying skin changes and on examination for hernia there is noted intestine within the scrotal sac and pain with any attempt to reduce. SKIN: Inspection of the skin reveals no rashes NEUROLOGIC: Alert and oriented x 4. Course Course Course Narrative: 35-year-old male with history and clinical presentation suspicious for strangulated/incarcerated right inguinal hernia. Will obtain labs and CT scan. Combination analgesics also provided. On review of all investigations patient has a fat containing right inguinal hernia with some surrounding stranding as well as a mild leukocytosis. In addition on re-evaluation patient states his pain has not been well controlled. This case was discussed with Dr. Gonzalez who will admit the patient. MDM - Abdominal Pain Lab Data Result diagrams: 02/23/21 21:40 02/23/21 21:40 Labs: Lab Results 02/23/21 02/23/21 02/23/21 Range/Units 21:40 21:40 21:40 WBC 11.7 H (4.8-10.8) X10*3/uL RBC 5.44 (4.60-5.80) X10*6/uL Hgb 16.5 (14.0-18.0) g/dl Hct 46.8 (42-52) % MCV 86.0 (80-98) fL MCH 30.3 (27.0-33.0) pg MCHC 35.3 (31.0-36.0) g/dl RDW 12.2 (11.0-16.0) % Plt Count 265 (160-400) X10*3/uL MPV 10.7 (9.4-12.4) fL Immature Gran % (Auto) 0.3 (0.0-0.4) % Neut % (Auto) 55.7 (45-73) % Lymph % (Auto) 34.6 (20-40) % [place] % (Auto) 6.8 (2-11) % Eos % (Auto) 1.9 (0-4) % Baso % (Auto) 0.7 (0-2) % Lymph # (Auto) 4.1 (1.2-4.9) X10*3/uL [place] # (Auto) 0.8 (0.1-1.2) X10*3/uL Eos # (Auto) 0.2 (0.0-0.4) X10*3/uL Baso # (Auto) 0.1 (0.0-0.2) X10*3/uL Abs Immat Gran (auto) 0.03 (0.00-0.03) X10*3/uL Absolute Neuts (auto) 6.5 (2.0-8.3) X10*3/uL Absolute Nucleated RBC 0.000 (0.0-0.012) X10*3/uL Nucleated RBC % (auto) 0.0 (0.0-0.2) /100WBC PT 12.3 (10.8-13.0) SEC INR 1.0 (0.9-1.1) Sodium 137 (135-145) mmol/L Potassium 4.4 (3.3-5.1) mmol/L Chloride 102 (96-108) mmol/L Carbon Dioxide 21 L (22-29) mmol/L Anion Gap 18 (12-20) BUN 23 H (9-16) mg/dL Creatinine 0.79 (0.5-1.4) mg/dL Estim Creat Clear Calc 128.4 Estimated GFR > 60 POC Glucose (60-115) mg/dL Random Glucose 220 H (60-115) mg/dL Calcium 10.1 D (8.4-10.2) mg/dL // Range/Units 23:12 WBC (4.8-10.8) X10*3/uL RBC (4.60-5.80) X10*6/uL Hgb (14.0-18.0) g/dl Hct (42-52) % MCV (80-98) fL MCH (27.0-33.0) pg MCHC (31.0-36.0) g/dl RDW (11.0-16.0) % Plt Count (160-400) X10*3/uL MPV (9.4-12.4) fL Immature Gran % (Auto) (0.0-0.4) % Neut % (Auto) (45-73) % Lymph % (Auto) (20-40) % [place] % (Auto) (2-11) % Eos % (Auto) (0-4) % Baso % (Auto) (0-2) % Lymph # (Auto) (1.2-4.9) X10*3/uL [place] # (Auto) (0.1-1.2) X10*3/uL Eos # (Auto) (0.0-0.4) X10*3/uL Baso # (Auto) (0.0-0.2) X10*3/uL Abs Immat Gran (auto) (0.00-0.03) X10*3/uL Absolute Neuts (auto) (2.0-8.3) X10*3/uL Absolute Nucleated RBC (0.0-0.012) X10*3/uL Nucleated RBC % (auto) (0.0-0.2) /100WBC PT (10.8-13.0) SEC INR (0.9-1.1) Sodium (135-145) mmol/L Potassium (3.3-5.1) mmol/L Chloride (96-108) mmol/L Carbon Dioxide (22-29) mmol/L Anion Gap (12-20) BUN (9-16) mg/dL Creatinine (0.5-1.4) mg/dL Estim Creat Clear Calc Estimated GFR POC Glucose 236 H (60-115) mg/dL Random Glucose (60-115) mg/dL Calcium (8.4-10.2) mg/dL Discharge Plan Discharge Clinical Impression: Right inguinal hernia Patient Disposition: Admitted As Inpatient Prescriptions: No Action ibuprofen 400 mg tablet 400 mg PO Q6H PRN (Reason: pain) Qty: 20 RF: 0 cyclobenzaprine 10 mg tablet 10 mg PO TID PRN (Reason: muscle spasm) Qty: 14 RF: 0 ibuprofen 600 mg tablet 600 mg PO Q8H PRN (Reason: pain) Qty: 20 RF: 0 doxycycline hyclate 100 mg capsule 100 mg PO BID Qty: 20 RF: 0 ibuprofen 600 mg tablet 600 mg PO Q6H PRN (Reason: pain) Qty: 20 RF: 0 PMFSH Past Medical History Source: nursing notes reviewed Medical History Diabetes High blood pressure HLD (hyperlipidemia) Right groin pain Right inguinal hernia Social History Social History Alcohol intake: never Smoking Status: Former smoker Use of substances other than those prescribed or required for medical reasons: No Advance Directives: No Advance Directives Information Provided: Yes
[2021-02-23] MEDS: Acetaminophen 325 MG TABLET 975 MG PO (22:03)
[2021-02-23] MEDS: 0.9 % Sodium Chloride 1,000 ML 999 ML IV (22:03)
[2021-02-23] MEDS: Ketorolac Tromethamine 15 MG/ML VIAL IVPUSH (22:03)
[2021-02-23 22:08] VITALS: BP 128/90; PULSE 100; RESP 16; TEMP 36.8; O2SAT 96
[2021-02-23 22:14] LABS: Anion Gap 18 (12-20); Blood Urea Nitrogen 23 mg/dL (9-16); Calcium 10.1 mg/dL (8.4-10.2); Carbon Dioxide 21 mmol/L (22-29); Chloride 102 mmol/L (96-108); Creatinine Clr Calc Pharmacy 128.4; Estimated Glomerular Filt Rate > 60; Glucose Random 220 mg/dL (60-115); Potassium 4.4 mmol/L (3.3-5.1); Sodium 137 mmol/L (135-145)
[2021-02-23] MEDS: iohexoL 350 MG/ML 100 ML INFUS..BTL IV (23:02)
[2021-02-23 23:16] LABS: Glucose, Whole Blood 236 mg/dL (60-115)
[2021-02-24] VITALS (15 sets, daily range): BP systolic 123–152; BP diastolic 64–102; PULSE 84–106; RESP 14–17; TEMP 36.1–36.9; O2SAT 96–99
[2021-02-24 02:08] LABS: COVID-19 Test Negative (Negative); IDNOW Serial# 9DD0AD1C
--- NOTE | 2021-02-24 02:55 | PC.NURSE ---
ASSUMING CARE OF THE PATIENT, MOVED FROM [facility] TO MAIN EMERGENCY DEPARTMENT TO ROOM 21. PATIENT RESTING COMFORTABLY ON STRETCHER, NO DISTRESS NOTED. WHEN TRANSPORTED TO ROOM.
--- NOTE | 2021-02-24 04:48 | PC.NURSE ---
DISCUSSED PLAN OF CARE WITH DR. WALTON NO ORDERS HAVE BEEN PLACED FROM SURGERY AT THIS TIME. DR. WALTON STATING SHE HAS REACHED OUT TO DR. RAGLAND AND DISCUSSED THE CASE, PROVIDER IS PLANNING ON REACHING OUT AGAIN WITHIN THE NEXT 15 MINUTES TO CONFIRM ADMISSION. PLAN FOR PATIENT UNTIL HEARING DIFFERENTLY FROM SURGERY WILL BE TO KEEP PATIENT NPO. PATIENT IS RESTING COMFORTABLY ON STRETCHER NO DISTRESS NOTED AT THIS TIME. WILL CONTINUE TO MONITOR AND FOLLOW UP ON ADMISSION ORDERS.
--- NOTE | 2021-02-24 05:20 | PC.NURSE ---
DR. RAGLAND CONTACTING ED PROVIDER, PLAN OF CARE IS FOR ADMISSION, PATIENT WILL REMAIN NPO. PAIN IS MANAGED AT THIS TIME. PATIENT RESTING WITH EYES CLOSED, NO FACIAL GRIMACE OR GUARDING AT THIS TIME.
[2021-02-24] MEDS: Dextrose 5 % and 0.9 % NaCl 1,000 ML 100 ML IVCONT (05:55)
--- NOTE | 2021-02-24 07:16 | PM.HPGS ---
History of Present Illness History of Present Illness Date of Service: 02/28/21 Chief complaint: painful right inguinal hernia with incacerated fat Narrative: Marlon Nolasco is a 35 year old male ER last night because of pain on the right groin. He is known to me. I had been seeing him in the office for a right inguinal hernia. He had multiple visits to the ER because of pain. He had an ultrasound in January 2021 which showed abnormal fat in right lower quadrant within the peritoneum but this was not where he is pointing to was were his pain was. He had been describing periodic swelling and pain on the right groin all the way to the scrotum. He says that he would see a mass that would reduce on and off. Overall clinical rings were suggestive of right inguinal hernia. He was actually scheduled to have right inguinal hernia repair on 03/16/2021. He says his pain was worse last night so he decided to come the emergency room. He feels that he has severe pain and he feels that he cannot wait for March 16 to have the surgery done. According to the ER physician, she had felt bowel loops initially on examination last night. The patient's CAT scan showed fat contents within a right inguinal hernia with some haziness consistent with edema. The patient denies any GI complaints. He states that he has been having this problem with right groin pain for about 3 months now. Review of Systems Constitutional: Constitutional: Denies chills and Denies fever(s) Cardiovascular: Cardiovascular: Denies chest pain, Denies dyspnea and Denies dyspnea on exertion Respiratory: Respiratory: Denies cough, Denies dyspnea and Denies dyspnea on exertion Gastrointestinal: Gastrointestinal: Denies hematochezia, Denies change in bowel habits and Denies vomiting Genitourinary: Genitourinary: Denies hematuria and Denies difficulty urinating Musculoskeletal: Musculoskeletal: Denies back pain and Denies limited range of motion Neurologic: Denies focal weakness and Denies convulsions Psychiatric: Psychiatric: Denies depression and Denies mood swings PMFSH Past Medical History Medical History Diabetes High blood pressure HLD (hyperlipidemia) Right groin pain Right inguinal hernia Social History Social History (Updated 02/24/21 @ 14:00 by Valeria Rock) Alcohol intake: never Smoking Status: Former smoker Second Hand Smoke Exposure: No Substance Use Type: Crack/Cocaine and Marijuana Meds Allergies Allergy/AdvReac Type Severity Reaction Status Date / Time No Known Allergies Allergy Verified 02/13/21 10:48 Active Medications: Current Medications Generic Name Dose Route Start Last Admin Trade Name Freq PRN Reason Stop Dose Admin Dextrose/Sodium Chloride 1,000 mls @ 100 mls/hr 02/24/21 05:30 02/24/21 05:55 D5ns IVCONT 100 mls/hr .Q10H JOHN Administration Cefazolin Sodium/Dextrose 2 gm in 50 mls @ 100 mls/hr 02/24/21 07:15 Ancef IV 02/24/21 07:44 PREOP ONE Morphine Sulfate 2 mg 02/24/21 05:30 Morphine Sulfate 2 Mg/Ml Cartridge IVPUSH Q4H PRN Pain, Severe (Pain Scale 7-10) Home Medications Medication Instructions Recorded Confirmed Last Taken Type Lantus U-100 Insulin 70 unit SUBCUT BEDTIME 02/24/21 02/24/21 02/23/21 History Trulicity 0.5 ml SUBCUT QWEEK 02/24/21 02/24/21 3 Days Ago History ~02/21/21 atorvastatin 1 tab PO BEDTIME 02/24/21 02/24/21 1 Day Ago History ~02/23/21 fenofibrate 1 tab PO DAILY 02/24/21 02/24/21 02/23/21 History lisinopril 1 tab PO DAILY 02/24/21 02/24/21 02/23/21 History metformin 1 tab PO BID 02/24/21 02/24/21 02/23/21 20:00 History omeprazole 1 cap PO BID 02/24/21 02/24/21 02/23/21 20:00 History Physical Exam Vital Signs: Vital Signs: Last Vital Signs Temp 98.4 F 02/24/21 05:23 Pulse 91 02/24/21 05:23 Resp 16 02/24/21 05:23 BP 130/79 02/24/21 05:23 Pulse Ox 99 02/24/21 05:23 Body Mass Index 29.9 Const: General: comfortable and no acute distress Orientation/consciousness: patient oriented x3 Neck: Neck: Yes no lymphadenopathy Resp: Auscultation: clear to auscultation bilaterally Cardio: Rhythm: regular rhythm GI: Other: Right inguinal hernia, reducible, more pronounced with Valsalva, tender to touch, no skin changes Palpation (GI): Soft to palpation, not firm and no guarding Neuro: General: patient oriented x3 Results Results Labs: Short CBC 02/23/21 Range/Units 21:40 WBC 11.7 H (4.8-10.8) X10*3/uL Hgb 16.5 (14.0-18.0) g/dl Hct 46.8 (42-52) % Plt Count 265 (160-400) X10*3/uL BMP 02/23/21 21:40 Sodium 137 Potassium 4.4 Chloride 102 Carbon Dioxide 21 L BUN 23 H Creatinine 0.79 Calcium [address] scan report/results: report reviewed and image reviewed CT scan - pelvis: report reviewed and image reviewed Assessment and Plan (1) Right inguinal hernia: Status: Acute He came to the emergency room last night because of pain on the right groin. He has a CAT scan showing a right inguinal hernia containing fat. There is note of some edema suggesting incarceration of this fat containing hernia. He says that the pain was worse last night and he feels that he cannot wait for March 16 to have the surgery done because of this pain. He wants to proceed with repair today. I reviewed with him the technique of repair of his right inguinal hernia with mesh. I discussed the risks including but not limited to bleeding, infections, bowel injury, injury to the vas deferens, occurrence, postop pain, as well as benefits and alternatives. He says he understands and has agreed to proceed. His CAT scan does not suggest any bowel involvement. Procedures Date of Service Date of Service: 02/24/21
--- NOTE | 2021-02-24 13:48 | HO.ANESPROP2 ---
HPI - Anesthesia Eval Consult details Narrative: 35 yo male patient here for Right Inguinal Hernia Repair PMFSH Active Problems Active Problems: All Active Problems (Updated 02/24/21 @ 00:40 by Elvie Pierre MD) Right inguinal hernia (Acute) Right groin pain (Acute) Past Medical History Medical History Diabetes High blood pressure HLD (hyperlipidemia) Right groin pain Right inguinal hernia Family History Family history of problems with anesthesia: No Surgical History History of Problems with Anesthesia: No Social History Social History (Updated 02/24/21 @ 14:00 by Valeria Rock) Alcohol intake: never Smoking Status: Former smoker Second Hand Smoke Exposure: No Use of substances other than those prescribed or required for medical reasons: Yes Substance Use Type: Crack/Cocaine and Marijuana Last Used Substance Other:: 5 years ago Are you DNR?: No Advance Directives: No Advance Directives Information Provided: Yes Advance Directives on File: No Meds Allergies Allergy/AdvReac Type Severity Reaction Status Date / Time No Known Allergies Allergy Verified 02/13/21 10:48 Active Medications: Current Medications Generic Name Dose Route Start Last Admin Trade Name Freq PRN Reason Stop Dose Admin Dextrose/Sodium Chloride 1,000 mls @ 100 mls/hr 02/24/21 05:30 02/24/21 05:55 D5ns IVCONT 100 mls/hr .Q10H JOHN Administration Cefazolin Sodium/Dextrose 2 gm in 50 mls @ 100 mls/hr 02/24/21 13:32 Ancef IV 02/24/21 14:01 PREOP ONE Morphine Sulfate 2 mg 02/24/21 05:30 Morphine Sulfate 2 Mg/Ml Cartridge IVPUSH Q4H PRN Pain, Severe (Pain Scale 7-10) Home Medications Medication Instructions Recorded Confirmed Last Taken Type atorvastatin 1 tab PO BEDTIME 02/24/21 02/24/21 1 Day Ago History ~02/23/21 dulaglutide [Trulicity] 0.5 ml SUBCUT QWEEK 02/24/21 02/24/21 3 Days Ago History ~02/21/21 fenofibrate 1 tab PO DAILY 02/24/21 02/24/21 02/23/21 History insulin glargine [Lantus U-100 70 unit SUBCUT BEDTIME 05/02/24/21 02/23/21 History Insulin] lisinopril 1 tab PO DAILY 02/24/21 02/24/21 02/23/21 History metformin 1 tab PO BID 02/24/21 02/24/21 02/23/21 20:00 History omeprazole 1 cap PO BID 02/24/21 02/24/21 02/23/21 20:00 History Exam Exam Date and Time: February 24, 2021 1348 Height,Weight and Vital Signs: Height 5 ft 5 in Weight 81.647 kg Last Vital Signs Temp 98.4 F 02/24/21 05:23 Pulse 91 02/24/21 05:23 Resp 16 02/24/21 05:23 BP 130/79 02/24/21 05:23 Pulse Ox 99 02/24/21 05:23 Vital Signs Temp Pulse Resp BP Pulse Ox 02/24/21 13:48 97.0 F 87 16 123/85 97 02/24/21 05:23 98.4 F 91 16 130/79 99 02/24/21 04:00 84 16 98 02/24/21 02:58 84 16 128/64 98 02/24/21 02:54 84 16 128/64 02/24/21 02:53 84 16 128/64 02/23/21 22:08 98.2 F 100 16 128/90 H 96 02/23/21 20:23 98.4 F 103 H 16 132/90 H 96 Pertinent Lab Results Pertinent Lab Results: Laboratory Tests 02/23/21 02/23/21 02/23/21 21:40 21:40 21:40 WBC 11.7 H RBC 5.44 Hgb 16.5 Hct 46.8 MCV 86.0 MCH 30.3 MCHC 35.3 RDW 12.2 Plt Count 265 MPV 10.7 Immature Gran % (Auto) 0.3 Neut % (Auto) 55.7 Lymph % (Auto) 34.6 [place] % (Auto) 6.8 Eos % (Auto) 1.9 Baso % (Auto) 0.7 Lymph # (Auto) 4.1 [place] # (Auto) 0.8 Eos # (Auto) 0.2 Baso # (Auto) 0.1 Abs Immat Gran (auto) 0.03 Absolute Neuts (auto) 6.5 Absolute Nucleated RBC 0.000 Nucleated RBC % (auto) 0.0 PT 12.3 INR 1.0 Sodium 137 Potassium 4.4 Chloride 102 Carbon Dioxide 21 L Anion Gap 18 BUN 23 H Creatinine 0.79 Estim Creat Clear Calc 128.4 Estimated GFR > 60 POC Glucose Random Glucose 220 H Calcium 10.1 D COVID-19 ([facility]AD) COVID-19 Clin Com 02/23/21 02/24/21 23:12 01:38 WBC RBC Hgb Hct MCV MCH MCHC RDW Plt Count MPV Immature Gran % (Auto) Neut % (Auto) Lymph % (Auto) [place] % (Auto) Eos % (Auto) Baso % (Auto) Lymph # (Auto) [place] # (Auto) Eos # (Auto) Baso # (Auto) Abs Immat Gran (auto) Absolute Neuts (auto) Absolute Nucleated RBC Nucleated RBC % (auto) PT INR Sodium Potassium Chloride Carbon Dioxide Anion Gap BUN Creatinine Estim Creat Clear Calc Estimated GFR POC Glucose 236 H Random Glucose Calcium COVID-19 ([facility]AD) Negative COVID-19 Clin Com See Note Narrative Narrative: Patient states on omeprazole to protect his stomach from meds he was put on but does not know which medication. Airway Mallampati Class: II TM Dist: >3cm Neck ROM: Full Heart: RRR Lungs: CTAB Assessment and Plan Assessment Anesthesia Assessment: Anesthesia Plan Discussed and Chart Reviewed Final Anesthetic Review NPO: Yes ASA Class: II and Emergency Final Preanesthetic Review: No Changes in Pt Med Stat, Meds/Allgs Chart Reviewed, Consent Obtained/Reviewed and Anes Risks/Benef Reviewed Patient Risk: Low Procedure Risk: Low Assessment/Block/Sedation in SS: Assess/Block/Sedation-SS Anesthetic Plan Anesthetic Plan: GA Disposition: Standard PACU
[2021-02-24 14:14] LABS: Glucose, Whole Blood 152 mg/dL (60-115)
--- NOTE | 2021-02-24 15:34 | PM.OP ---
Brief Operative Note Date of Service: 02/24/21 Pre-op diagnosis: Right inguinal hernia, with severe pain Post-op diagnosis: same Procedure: Repair of right hernia with mesh Implants: Mesh Surgeon: Dennis Gonzalez MD Anesthesia: GLMA Was an Production Maintenance Technician used for this Procedure?: No Estimated blood loss (mL): 20 Pathology: other (Hernia sac) Condition: stable Disposition: PACU
--- NOTE | 2021-02-24 15:35 | W.PM.OPN ---
Operative Note Operative Note Date of Service: 02/24/21 Narrative: Preop diagnosis: Right inguinal hernia, with severe pain Postop diagnosis: Right inguinal hernia, with severe pain, indirect Procedure: repair of right inguinal hernia with mesh Surgeon: Dennis Gonzalez MD Client Application Support Engineer: PERICO Lee student The patient is a 35-year-old male who went to the ED last night because of pain on his right inguinal hernia. He has been having this pain on and off for about 3-4 months and as a matter of fact, is scheduled for elective repair on March 16, 2021. However, he said he had severe pain again yesterday afternoon so he decided to go back to the emergency room. A CAT scan showed a fat containing hernia on the right side. However, he says that he did not want to go home anymore because of his severe pain with repeated episodes. He wanted to proceed with repair during this stay. He understood the technique of the procedure as well as the risks, benefits, and alternatives. He was brought to the operating room and placed supine on table under general anesthesia via laryngeal mask airway. The right groin was prepped and draped in the usual sterile fashion. A surgical time-out was done. The patient received cefazolin 2 g IV preoperatively I infiltrated the planned line of incision using lidocaine 1%. I made a short incision along an imaginary line from the pubic ramus to the anterior superior iliac spine using blade 15. This was carried down through the full-thickness of skin and subcutaneous fat until we were able to see the external aponeurosis. We bluntly dissected the external oblique aponeurosis on this area to visualize external ring. I made incision on the external oblique aponeurosis overlying the inguinal canal using a blade 15. And this was extended inferomedially to connect with the external ring. At this point therefore, the inguinal canal was entered. I applied graspers on the edges of the divided external oblique aponeurosis. I bluntly dissected the underside of the aponeurosis to create pocket for a mesh. I bluntly dissected the spermatic cord and its contents using an index finger until I was able to pass a [place] drain around this . The this Jefferson drain was used for retraction. I examined the cord and its contents. I was able to identify the vas deferens and this was protected during the entire dissection. I was able to see a hernia sac on the adrienne lateral aspect . I gently and bluntly dissected this off the rest of the cord contents until was able to reduce this through the internal ring. I twisted the sac down to the level of the ring and applied a clamp across this. I divided the sac above the clamp and this was sent as a specimen. I applied a suture ligature with his Dexon 2 on the stump of the sac. The clamp was released I then reinforced this internal ring with the medium-sized PerFix plug. This plug was secured to the internal oblique aponeurosis medially and superiorly, as well as the shelving edge of the inguinal meant laterally. I then positioned a keyhole mesh underneath the external oblique aponeurosis. I passed the tails of the mesh around the cord at the level of the internal ring and secured this together a Prolene 2-0 stitch. I secured the mesh with Prolene 2-0 suture to the shelving edge of the inguinal ligament laterally, and the internal oblique medially as well as on the pubic ramus. I observed for hemostasis. I released the Jefferson drain. Once hemostasis was ensured I irrigated the area. I closed the external oblique aponeurosis with a running Dexon 2-0 states to recreate the external ring. I reapposed the subcutaneous layer with Dexon 3-0 interrupted sutures. Skin closure was achieved with a running subcuticular Dexon 4-0 stitch. I infiltrated the area around the incision. I applied dressings and Steri-Strips. The procedures and completed The patient tolerated the procedure well with no complications noted. Initial and final counts of sponges and instruments were correct. Estimated blood loss about 20 cc. The patient is extubated without difficulty and transferred to the recovery room with stable vital signs. The plan will be to discharge the patient later today.
--- NOTE | 2021-02-24 15:53 | PM.OP ---
Brief Operative Note Date of Service: 02/24/21 Pre-op diagnosis: Right inguinal hernia Post-op diagnosis: same Procedure: Repair of right inguinal hernia with mesh Surgeon: Dennis Gonzalez MD Anesthesia: GLMA Was an Medicaid Nurse used for this Procedure?: No Estimated blood loss (mL): 25 Pathology: other (Sac) Condition: stable Disposition: no change
[2021-02-24] MEDS: Ketorolac Tromethamine 15 MG/ML VIAL IVPUSH (16:00)
[2021-02-24] MEDS: oxyCODONE HCl Immed Release 5 MG TABLET PO (16:25)
--- NOTE | 2021-02-24 16:27 | PM.EVENT ---
Event Note Date of Service: 02/24/21 Event Note: seen postop he underwent RIH repair today looks comfortable surgery uneventful ok to dc home from PACU explained to patient dc instructions given
== END 2021-02-24 13:40 | disposition admitted as inpatient to this hospital (09) ==
LOC: HO.ED 02-24 02:55 → HO.S3 02-24 07:39
PROVIDERS: Emergency Provider Student in an Organized Health Care Education/Training Program; PCP Internal Medicine; Visit Provider Surgery
PROC: (CPT 49521; principal; 2021-02-24 13:10)
DX: K40.90 Unilateral inguinal hernia, without obstruction or gangrene, not specified as recurrent (principal); R10.31 Right lower quadrant pain; E11.9 Type 2 diabetes mellitus without complications; I10 Essential (primary) hypertension; E78.5 Hyperlipidemia, unspecified; F12.10 Cannabis abuse, uncomplicated; F14.10 Cocaine abuse, uncomplicated; Z20.822 Contact with and (suspected) exposure to COVID-19; Z87.891 Personal history of nicotine dependence; Z79.84 Long term (current) use of oral hypoglycemic drugs; Z79.899 Other long term (current) drug therapy
CPT/HCPCS: 49521; 36415; 74177; 80048; 82947; 85025; 85610; 87635; 88302; 96361; 96365; 96366; 96374; 96375; 99285; J1100; J1170; J1885; J2250; J2405; J2765; J3010; Q9967

== ENCOUNTER → 2021-03-09 14:29 | Outpatient (BNVA) | payer MEDICAID, OTHER, SELFPAY | PROVIDERS: PCP Internal Medicine; Visit Provider Surgery | DX: K40.90 Unilateral inguinal hernia, without obstruction or gangrene, not specified as recurrent (principal); E11.9 Type 2 diabetes mellitus without complications; R03.0 Elevated blood-pressure reading, without diagnosis of hypertension; F14.10 Cocaine abuse, uncomplicated; F12.10 Cannabis abuse, uncomplicated; Z79.4 Long term (current) use of insulin; Z79.899 Other long term (current) drug therapy | CPT/HCPCS: 99212 ==

== ENCOUNTER 2021-07-03 07:05 | Emergency (ER) | payer MEDICAID, OTHER, SELFPAY ==
--- NOTE | ~2021-07-03 | CT_ITS ---
EXAMINATION: CT ABDOMEN WITHOUT CONTRAST CLINICAL INFORMATION: Left upper quadrant pain after fall COMPARISON: Previous CT of the abdomen and pelvis February 2021 TECHNIQUE: Contiguous axial thin section helical images of the abdomen were performed without contrast. The data set was reformatted in the coronal and sagittal planes and reviewed on an independent workstation. This CT examination was performed using dose optimization techniques as appropriate, variously including the following: *Automated exposure control *Adjustment of mA and/or kV according to patient size (this includes techniques or standardized protocols for targeted exams where dose is matched to indication/reason for exam; i.e. extremities or head) *Use of iterative reconstruction technique DLP: 495 mGy-cm FINDINGS: LUNG BASES: Unremarkable LIVER, GALLBLADDER, BILIARY TREE: Unremarkable PANCREAS: Unremarkable SPLEEN: Unremarkable ADRENAL GLANDS AND KIDNEYS: Unremarkable BOWEL LOOPS: Mild diverticulosis of the colon. Small and large bowel otherwise unremarkable. Stomach unremarkable. No ascites or free air. LYMPH NODES: Normal. VASCULAR: Unremarkable. BONES: There is mild curvature of the lower lumbar spine to the right and degenerative change. No fractures seen. CT/CT abdomen wo con IMPRESSION: No acute findings. Mild diverticulosis of the colon.
--- NOTE | ~2021-07-03 | XR_ITS ---
EXAMINATION: XR RIBS, LEFT CLINICAL INFORMATION: Pain post fall COMPARISON: CT of the abdomen done the same day TECHNIQUE: 3 views of the left ribs and one view of the chest were obtained. FINDINGS: Lungs are clear. No consolidation, pneumothorax, or pleural effusion. The cardiomediastinal silhouette and pulmonary vasculature are normal. Osseous structures are unremarkable. Ribs are intact. No fractures are identified. XR/XR ribs LT min 3V w CXR1V IMPRESSION: Unremarkable examination.
[2021-07-03 07:09] VITALS: BP 120/80; PULSE 91; RESP 18; TEMP 36.8; O2SAT 97; BMI 29.0
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
[2021-07-03 08:14] VITALS: O2SAT 97
[2021-07-03 08:14] LABS: Hematocrit 42.1 % (42-52); Hemoglobin 14.6 g/dl (14.0-18.0); Mean Corpuscular HGB Conc 34.7 g/dl (31.0-36.0); Mean Corpuscular Hemoglobin 30.5 pg (27.0-33.0); Mean Corpuscular Volume 88.1 fL (80-98); Mean Platelet Volume 11.2 fL (9.4-12.4); Platelet Count 197 X10*3/uL (160-400); Red Blood Count 4.78 X10*6/uL (4.60-5.80); Red Cell Distribution Width 12.2 % (11.0-16.0); White Blood Count 9.5 X10*3/uL (4.8-10.8)
== END 2021-07-03 08:52 | disposition home or self-care (01) ==
PROVIDERS: Emergency Provider Emergency Medicine
DX: S20.212A Contusion of left front wall of thorax, initial encounter (principal); R07.81 Pleurodynia; R10.9 Unspecified abdominal pain; V18.4XXA Pedal cycle driver injured in noncollision transport accident in traffic accident, initial encounter; Y93.9 Activity, unspecified; Y92.410 Unspecified street and highway as the place of occurrence of the external cause; Y99.9 Unspecified external cause status; Z79.899 Other long term (current) drug therapy
CPT/HCPCS: 36415; 71101; 74150; 85027; 99284

== ENCOUNTER 2025-06-20 07:28 | Emergency (ER) | payer MEDICAID, OTHER, SELFPAY ==
--- OUTSIDE RECORDS SUMMARY | 2025-06-18 09:30 | XMS_ITS | Encounter Summary ---
Author Organization [employer] Address [address] [facility] 7t [place] [address] Care Team Providers Care Montessori Paraprofessional Name Role Phone Soha Boo MD Primary Care Pro vider Reason for Visit * Reason Comments nurse visit CGM review Encounter Details Date Type Department Care Team (Latest Contact Info) Description 06/18/2025 9:30 AM EDT Clinical Support [facility] MEDICINE [address] [place] [address] Marlene Hoover RN Type 2 diabetes mellitus without complication, unspecified whether termination clerk insulin use ([facility]) Social History Tobacco Use Types Packs/Day Years Used Date Smoking Tobacco: Former Cigarettes Smokeless Tobacco: Never Comments:Started smoking at 23 y until 31 y of age ,smoked for 8 years and stopped 8 y ago, used to smoke 1 cig a day Alcohol Use Standard Drinks/Week Comments Yes 24 (1 standard drink = 0.6 oz pure alcohol) drinks beer on weekends and mybe once during weekdays aprox 12 beers at the time sometimes hard liquor Depression Answer Date Recorded Patient Health Questionnaire-9 Score 0 04/13/2025 Patient Health Questionnaire-9 Score 0 04/13/2025 Last PHQ-9: Questionnaire Data Not on file 0 04/13/2025 Housing Stability Answer Date Recorded What is your housing situation today? I have pipe sharri 04/13/[address] you li ve. Do you have problems with any of the following? None of the above 04/13/2025 Food Insecurity Answer Date Recorded Within the past 12 months, y ou worried that your food would run out before you got money to buy more: Never True 04/13/2025 Within the past 12 months,th e food you bought just didn't last and you didn't have enough money to get more: Never True 05/2025 Transportation Answer Date Recorded In the past 12 months, has l ack of transportation kept you from medical appts, meetings, work or from getting things needed for daily living? No 04/13/2025 Utilities Answer Date Recorded In the past 12 months, has t he electric, gas, oil or water company threatened to shut off services in your home? No 04/13/2025 Depression Answer Date Recorded Patient Health Questionnaire-2 Score 0 04/13/2025 Internet Access Answer Date Recorded Internet Access Q1 Yes 04/13/2025 Internet Access Q2 Not on file 04/13/2025 Sex and Gender Information Value Date Recorded Sex Assigned at Male 09/05/2022 2:46 PM EST Legal Sex Male 2:46 PM EST Gender Identity Male 12/12/2022 8:13 AM EST Sexual Orientation Choose not to disclose 2021 2:46 PM EST documented as of this encounter Progress Notes * Marlene Hoover RN - 06/18/2025 9:30 AM EDT SUBJECTIVE: Marlon Green is a 40 y.o. year old male who presents for nurse visit CGM review Preferred language for medical information: Book Agent needed: Yes, BLS [id number] Symptoms: denies diabetic polyneuropathy, polyuria, polydipsia, reports on/off blurry vision when my BS is high , per PCP office note from 04/13/25, this is going issue CGM device: CGM DEVICE: [employer]bit Systemsstyle Schuyler 3. OBJECTIVE: Lab Results Component Value Date HGBA1C 8.5 (A) 04/13/2025 Lab Results Component Value Date HGBA1C 8.5 (A) 04/13/2025 POCGLU 158 04/13/2025 BP Readings from Last 4 Encounters: 04/13/25 118/82 07/09/24 128/86 06/04/24 128/70 10/24/23 128/70 Pulse Readings from Last 4 Encounters: 04/13/25 101 07/09/24 100 06/04/24 74 10/24/23 74 CGM sensor data: Freestyle Schuyler 3 Pt reports difficultly with using CGM, reports it falls off frequently. Today the data available onthe CGM is exactly the same as 1 month ago on 05/18/25. Pt reports using CGM maybe not for one week , but it fell off this AM. Upon examination, CGM machine set to 03/2023. Updated date/time today. Unable to review recent data. He reports BS at home of 90-300. Looking at log on device itself, last BS was 67 dated 03/2023, ptsays this is from this AM. Hypoglycemic occurrences: pt reports BS 67 this AM Potential reasons: skipping meals? Hyperglycemic occurrences: pt reports frequent BS >250-300 Potential reasons: diet GOALS: Healthy eating/diet: Pt denies making any changes to diet since last appt 1 month ago. Glucose monitoring: reports using CGM with difficultly. Reviewed using Skin-Tac and Simpatch to help with adherence. Adherence to medication: yes, confirms taking metformin, Trulicity (Tuesdays), Jardiance, and lantus 20 units. Has not increased to 25 units as recommended by Dr Chua after last visit. Problem solving/reducing risks: Pt reports keeping candy or chocolate on hand for lows. He does notreport Healthy coping: pt's helps keep pt keep appointments EDUCATION: The following was reviewed with Marlon Green and they confirmed understanding Healthy diet and lifestyle Reviewed risks of macrovascular and microvascular complications of uncontrolled T2DM Reviewed signs, symptoms and treatments of hypoglycemia to which patient confirmed understanding ASSESSMENT: Achieve A1C of <7.0% while minimizing episodes of hypoglycemia PLAN: Today's findings reviewed with PCP Dr. Chua. Advised pt to expect call later today regarding plan of care. -Advised pt will call to clarify if should be taking 20 units or 25 units of Lantus. - Called [facility] pharmacy and requested refills on sensors, advised pt to peanut picker today and call if having difficulty pairing new device and also to call if BS frequently >250-300 - reviewed to work on 1-2 diet modifications before next PCP appt: decreasing overall soda intake, switching to diet sda, trying to avoid late night snacks and if snack is needed, choose something with protein and less simple carbs - advised to peanut picker regular glucometer from pharmacy -reminded pt to get labs done before 07/07/25 PCP appt Labs ordered Yes. Outstanding. Pt to complete around 06/28/25 Marlon Green agrees to try lifestyle goals listed above and at least 70% usage on CGM. Addendum: spoke to Dr Chua in office, she advised pt to take lantus 25 units nightly and call [facility] if experiencing lows. She will see pt on 07/07/25 and advise then if MTM appt will be changed to CDTMvisit on 07/09/25. Called pt with [facility]. Advised to take 25 units of Lantus nightly but to call C immediately if experiencing any lows (don't wait until next appt). Pt verbalized understanding. Future Appointments Date Time Provider Department Center 07/07/2025 9:00 AM Soha Ortiz MD MEDICINE [facility] 07/09/2025 9:00 AM Niurka Boyd PharmD MEDICINE [facility] 07/13/2025 9:00 AM Pat Staples OD VISION [facility] Marlene Hoover, RN documented in this encounter Plan of Treatment Upcoming Encounters Date Type Department Care Team (Late st Contact Info) Description 07/07/2025 9:00 AM EDT Office Visit [facility] MEDICINE [address] [place] [address] Soha Boo MD [address] [place] [address] 07/09/2025 9:00 AM EDT Medication Management [facility] MEDICINE [address] [place] [address] Niurka Boyd PharmD [address] [place] [address] 07/13/2025 9:00 AM EDT Office Visit [facility] OPTOMETRY [address] [place] [address] Pat Staples OD [address] [place] [address] documented as of this encounter Visit Diagnoses Diagnosis Type 2 diabetes mellitus without complication, unspecified whether termination clerk insulin use ([facility]) documented in this encounter Additional Health Concerns Assessment Noted Time PHQ-9 Depression Total Score: 0 04/13/20 11:37 AM EDT documented as of this encounter Care Teams Montessori Paraprofessional Relationship Specialty Start Date End Date Soha Boo MD [address] [place] [id number] PCP - General Internal Medicine 04/13/25 documented as of this encounter
--- NOTE | ~2025-06-20 | CT_ITS ---
CLINICAL HISTORY: left sided pain and tenderness CT abdomen and pelvis with contrast Comparison: None provided Findings: No consolidation or effusion. The gallbladder and solid organs are within normal limits. No renal stones. No bowel obstruction, pneumoperitoneum, or pneumatosis. Pelvic contents unremarkable. Normal appendix. The bones are intact. IMPRESSION: No acute findings. This document has been electronically signed by: Camilo Amanda MD on 06/20/2025 11:07:18
[2025-06-20 07:35] VITALS: BP 139/79; PULSE 108; RESP 16; TEMP 36.6; O2SAT 99; BMI 32.5
--- OUTSIDE RECORDS SUMMARY | 2025-06-20 07:56 | XMS_ITS | Encounter Summary ---
Author Organization [employer] Address [address] [facility] 7t [place] [address] Care Team Providers Care Floor Layer Name Role Phone Soha Boo MD Primary Care Pro vider Encounter Details Date Type Department Care Team (Late Contact Info) Description 12/11/2022 Abstract [facility] ADULT DENTAL [address] [place], [place] [phone] Shadi Haddad DDS [address] [place], [place] [phone] Social History Tobacco Use Types Packs/Day Years Used Date Smoking Tobacco: Never Smokeless Tobacco: Never Alcohol Use Standard Drinks/Week Comments Yes 24 (1 standard drink = 0.6 oz pu re alcohol) drinks beer on weekends Sex and Gender Information Value Date Recorded Sex Assigned at Male 09/05/2022 2:46 PM EST Legal Sex Male 2:46 PM EST Gender Identity Male 12/12/2022 8:13 AM EST Sexual Orientation Choose not to disclose 2021 2:46 PM EST COVID-19 Exposure Response Date Recorded In the last 10 days, have yo u been in contact with someone who was confirmed or suspected to have Coronavirus/COVID-19? No / Unsure 12/12/2022 7:59 AM EST documented as of this encounter Plan of Treatment Upcoming Encounters Date Type Department Care Team (Late Contact Info) Description 07/07/2025 9:00 AM EDT Office Visit [facility] MEDICINE [address] [place] [address] Soha Boo MD [address] [place], [place] [phone] 07/09/2025 9:00 AM EDT Medication Management [facility] MEDICINE [address] [place] [address] Niurka Boyd, Vidal [address] [place] [address] 07/13/2025 9:00 AM EDT Office Visit [facility] OPTOMETRY [address] [place], [place] [phone] Pat Staples, OD [address] [place] [address] documented as of this encounter Visit Diagnoses Not on filedocumented in this encounter Care Teams Floor Layer Relationship Specialty Start Date End Date Soha Boo MD [address] [place] [address] PCP - General Internal Medicine 04/13/25 documented as of this encounter
--- OUTSIDE RECORDS SUMMARY | 2025-06-20 07:56 | XMS_ITS | Encounter Summary ---
Author Organization [employer] Address [address] [place] [address] 7t [place] [address] Care Team Providers Care Superintendent Pressure Name Role Phone Soha Boo MD Primary Care Pro vider Encounter Details Date Type Department Care Team (Late Contact Info) Description 12/19/2022 Abstract [facility] DENTAL [address] [place], [place] [phone] Shadi Haddad DDS [address] [place], [place] [phone] Social History Tobacco Use Types Packs/Day Years Used Date Smoking Tobacco: Former Cigarettes Smokeless Tobacco: Never Alcohol Use Standard Drinks/Week [...] Description 07/07/2025 9:00 AM EDT Office Visit [facility] [address] [place] [address] Soha Boo MD [address] [place], [place] [phone] 07/09/2025 9:00 AM EDT Medication Management [facility] [address] [place] [address] Niurka Boyd, Vidal [address] [place] [address] 07/13/2025 9:00 AM EDT Office Visit [facility] OPTOMETRY [address] [place], [place] [phone] Pat Staples, OD [address] [place] [address] documented as of this encounter Visit Diagnoses Not on filedocumented in this encounter Care Teams Superintendent Pressure Relationship Specialty Start Date End Date Soha Boo MD [address] [place] [address] PCP - General Internal Medicine 04/13/25 documented as of this encounter
--- OUTSIDE RECORDS SUMMARY | 2025-06-20 07:56 | XMS_ITS | Encounter Summary ---
Author Organization [employer] Address [address] [facility] 7t [place] [address] Care Team Providers Care Control Engineer Name Role Phone Soha Boo MD Primary Care Pro vider Encounter Details Date Type Department Care Team ([facility] Contact Info) Description 04/17/2023 Abstract [facility] ADULT DENTAL [address] [place] [address] Tu Simon, DMD [address] [place], [place] [phone] Social History Tobacco Use Types Packs/Day Years [...] suspected to have Coronavirus/COVID-19? No / Unsure 04/15/2023 7:58 AM EDT documented as of this encounter Plan of Treatment Upcoming Encounters Date Type Department Care Team (Late Contact Info) Description 07/07/2025 9:00 AM EDT Office Visit [facility] MEDICINE [address] [place] [address] Soha Boo MD [address] [place], [place] [phone] 07/09/2025 9:00 AM EDT Medication Management [facility] MEDICINE [address] [place] [address] Niurka Boyd, Vidal [address] [place] [address] 07/13/2025 9:00 AM EDT Office Visit [facility] OPTOMETRY [address] [place] [address] Pat Staples, OD [address] [place] [address] documented as of this encounter Visit Diagnoses Not on filedocumented in this encounter Care Teams Control Engineer Relationship Specialty Start Date End Date Soha Boo MD [address] [place] [address] PCP - General Internal Medicine 04/13/25 documented as of this encounter
--- OUTSIDE RECORDS SUMMARY | 2025-06-20 07:56 | XMS_ITS | Encounter Summary ---
Author Organization [employer] Address [address] [facility] [address] [place] [address] Care Team Providers Care Marketing Graphics Specialist Name Role Phone Soha Boo MD Primary Care Pro vider Encounter Details Date Type Department Care Team (Latest Contact Info) Description 06/18/2025 Travel Social History Tobacco Use Types Packs/Day Years [...] your housing situation today? I have pipe harrell 04/13/[address] you li [...] PM EST documented as of this encounter Plan of Treatment Upcoming Encounters Date Type Department Care Team (Late st Contact Info) Description 07/07/2025 9:00 AM EDT Office Visit [facility] MEDICINE [address] [place] [phone] Soha Boo MD [address] [place] [address] 07/09/2025 9:00 AM EDT Medication Management [facility] [address] [place] [phone] Niurka Boyd, PharmD [address] [place] [address] 07/13/2025 9:00 AM EDT Office Visit [facility] OPTOMETRY [address] [place] [address] Pat Staples, OD [address] [place] [address] documented as of this encounter Visit Diagnoses Not on filedocumented in this encounter Additional Health Concerns Assessment Noted Time PHQ-9 Depression Total Score: 0 04/13/20 11:37 AM EDT documented as of this encounter Care Teams Marketing Graphics Specialist Relationship Specialty Start Date End Date Soha Boo MD [address] [place] [phone] PCP - General Internal Medicine 04/13/25 documented as of this encounter
--- OUTSIDE RECORDS SUMMARY | 2025-06-20 07:56 | XMS_ITS | Clinical Summary ---
Author Organization [facility] Address [address] [place] [address] Care Team Providers Care Concrete Mixer Truck Driver Name Role Phone Unavailable Primary Care Provider Unavailabl e Social History Tobacco Use Types Packs/Day Years Used Date Smoking Tobacco: Never Assessed Sex and Gender Information Value Date Recorded Sex Assigned at Not on file Legal Sex Male 5:32 AM EST Gender Identity Not on file Sexual Orientation Not on file Plan of Treatment Health Maintenance Due Date Last Done Comments DTaP,Tdap,and Td Vaccines (1 - Tdap) 2004 Hepatitis B Vaccines (1 of 3 - 19+ 3-dose series) 2004 Depression Screening 10/07/2024 COVID-19 Vaccine (1 - 2023-2 5 season) 2025 Influenza Vaccine (#1) 2025 HIB Vaccines Aged Out No longer eligi ble based on patient's age to complete this topic HPV Vaccines Aged Out No longer eligi ble based on patient's age to complete this topic Hepatitis A Vaccines Aged Out No long er eligible based on patient's age to complete this topic IPV Vaccines Aged Out No longer eligi ble based on patient's age to complete this topic MMR Vaccines Aged Out No longer eligi ble based on patient's age to complete this topic Meningococcal ACWY Vaccine Aged Out N o longer eligible based on patient's age to complete this topic Meningococcal B Vaccine Aged Out No l onger eligible based on patient's age to complete this topic Pneumococcal Vaccine: Pediat rics (0 to 5 Years) and At-Risk Patients (6 to 49 Years) Aged Out No longer eligible b ased on patient's age to complete this topic RSV Immunization Patients Un [place] 20 months Aged Out No longer eligible b ased on patient's age to complete this topic Varicella Vaccines Aged Out No longer eligible based on patient's age to complete this topic
--- OUTSIDE RECORDS SUMMARY | 2025-06-20 07:56 | XMS_ITS | Clinical Summary ---
Author Organization [email or web address] Address [address] [facility] [address] [place] [address] Care Team Providers Care Chalk Extruding Machine Operator Name Role Phone Soha Boo MD Primary Care Pro vider Allergies No known active allergies Medications chlorhexidine (Peridex) 0.12 % solutionIndicati ons:Periodontal disease Rinse with capful (15 mL) for 30 seconds morning and night, after brushing teeth. Use for 2 weeks. Do not use for more than 2 weeks as it can cause tooth staining. 473 mL 3 Active Continuous Glucose Social Sciences Chair (FreeStyle Schuyler 3 [place]) deviceIndication s:Annual physical exam 1 each Once per day. Check glucose twice a day 1 each 5 Active glucose blood (FreeStyle Precision Bi Test) test stripIndications :Annual physical exam Check glucose twice a day 100 each 11 5 04/13/20 26 Active Continuous Glucose Sensor (FreeStyle Schuyler 3 Plus Sensor) miscIndications: Annual physical exam 1 each every 15 days. Check glucose twice a day 2 each 5 Active metFORMIN (Glucophage) 1000 MG tabletIndication s:Annual physical exam Take 1 tablet (1,000 mg) by mouth with breakfast and with evening meal. 60 tablet 2 5 04/13/20 26 Active Lantus 100 UNIT/ML injectionIndicat ions:Annual physical exam Inject 20 Units under the skin at bedtime. 10 mL 2 5 Active Insulin Pen Needle (pen needle 02/19 ) 31G X 8 mm miscIndications: Annual physical exam Use as instructed 100 each 12 5 04/13/20 26 Active empagliflozin (Jardiance) 25 MG Take 1 tablet (25 mg) by mouth Once per day. 90 tablet Active Trulicity 4.5 MG/0.5ML solution auto-injector Inject 4.5 mg as directed 1 (one) time per week. 0.5 mL 3 Active atorvastatin (Lipitor) 80 MG tablet Take 1 tablet (80 mg) by mouth Once per day. 90 tablet 5 Active lisinopril 20 MG tablet Take 1 tablet (20 mg) by mouth Once per day. 90 tablet 5 Active fenofibrate (Tricor) 54 MG tablet Take 1 tablet (54 mg) by mouth Once per day. 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 ([facility]) Use to test blood sugar 2 times daily 100 each 12 05/20/2025 4:40 PM EDT 5 05/18/20 26 Active Lancets miscIndications: Type 2 diabetes mellitus without complication, unspecified whether mcfp insulin use ([facility]) Use to test blood sugar 2 times daily 100 each 05/20/2025 4:46 PM EDT 5 Active Alcohol Swabs 70 % padsIndications: Type 2 diabetes mellitus without complication, unspecified whether m[facility]p insulin use ([facility]) Use to test blood sugar 2 times daily 100 each 05/20/2025 4:43 PM EDT 5 Active Blood Glucose Monitoring Suppl (FreeStyle [place] Lite) w/Device kitIndications:T ype 2 diabetes mellitus without complication, unspecified whether mcfp insulin use ([facility]) Use to test blood sugar 2 times daily 1 kit 05/21/2025 10:10 AM EDT 5 Active Active Problems Problem Noted Date Diagnosed Date Health care maintenance 04/13/2025 HTN (hypertension) 04/13/2025 Alcohol abuse 04/13/2025 Hx of gastroesophageal reflux (GERD) 04/13/2025 Abnormal liver function tests 07/09/2024 Acanthosis nigricans 07/09/2024 Class 1 obesity 07/09/2024 Diabetic nephropathy 07/09/2024 Epidermoid cyst 07/09/2024 Hyperlipidemia 07/09/2024 Steatosis of liver 07/09/2024 History of tooth extraction 07/09/2024 Symptomatic periapical periodontitis 06/04/2024 Gingival bleeding 10/24/2023 Periodontal disease 04/29/2023 Dental calculus 04/29/2023 Encounters Date Type Department Care Team Description 06/18/2025 9:30 AM EDT Clinical Support [facility] [place] [address] Marlene Hoover, CHRISTINE Type 2 diabetes mellitus without complication, 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 (CMS/HCC) 06/18/2025 Travel 05/18/2025 9:30 AM EDT Clinical Support [facility] [place] [address] Marlene Hoover RN Type 2 diabetes mellitus without complication, with long-term current use of insulin (CMS/HCC) 05/18/2025 Refill [facility] [place] [address] Soha Boo MD Type 2 diabetes mellitus without complication, 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 (CMS/HCC) 05/18/2025 Travel 04/30/2025 Telephone [facility] [place] [address] Soha Boo MD sep recall 04/16/2025 10:00 AM EDT Clinical Support [facility] [place] [address] Marlene Hoover RN Type 2 diabetes mellitus without complication, unspecified whether mcfp insulin use (CMS/HCC) 04/16/2025 Travel 04/14/2025 Telephone [facility] [place] [address] Soha Boo MD Prior Authorization 04/13/2025 10:15 AM EDT Office Visit [facility] [place] [address] Soha Boo MD Blurry vision, bilateral (Primary Dx); Diabetic nephropathy associated with type 2 diabetes mellitus (CMS/HCC); Type 2 diabetes mellitus without complication, with long-term current use of insulin (CMS/HCC); Annual physical exam; Hyperlipidemia, unspecified hyperlipidemia type; Class 1 obesity; Health care maintenance; Hypertension, unspecified type; Alcohol abuse; Hx of gastroesophageal reflux (GERD) 04/13/2025 Travel 04/12/2025 Telephone [facility] [address] [place] [address] Suzette Frost MA chart prep 04/05/2025 Patient Outreach [facility] [address] [place] [address] Soha Boo MD Pre-visit Planning ([facility] unable to reach [facility] ) from Last 3 Months Immunizations Immunization Administration Dates Next Due Hep B, adult 10/24/2016,02/14/2015,08/02/2014 Influenza injectable quadriv alent preservative free 08/23/2022 Influenza, IIV3, injectable 08/20/2023,1 10/23/2021,10/17/2020,09/18,08/02/2017,10/24/2016,08/05/2015 ,06/23/2014 Influenza, seasonal, injecta ble, preservative free 09/17/2024,08/20/2023,10/17/2020 Pneumococcal Conjugate PCV 20 11/20/2022 Pneumococcal Polysaccharide PPSV23 06/23/2014 Tdap 05/12/2019,06/23/2014,02/12/2014 Varicella 02/14/2015,08/02/2014 Family History Medical History Relation Name Comments DM2 Mother Relation Name Status Comments Mother Social History Tobacco Use Types Packs/Day Years [...] is your housing situation today? I have ippe sing 04/13/[address] you li [...] not to disclose 2021 2:46 PM EST Last Filed Vital Signs Vital Sign Reading Time Taken Comments Blood Pressure 118/82 04/13/2025 11:04 AM EDT Pulse 101 04/13/2025 11:04 AM EDT Temperature 36.3 C (97.3 F) 04/13/2025 11:04 AM EDT Respiratory Rate 20 04/13/2025 11:04 AM EDT Oxygen Saturation 97% 04/13/2025 11:04 AM EDT Inhaled Oxygen Concentration - - Weight 86.8 kg (191 lb 6.4 oz) 04/13/2025 11:04 AM EDT Height - - Body Mass Index - - Plan of Treatment Upcoming Encounters Date Type Department Care Team (Late st Contact Info) Description 07/07/2025 9:00 AM EDT Office Visit [facility] [address] [place] [address] [phone] Soha Boo MD [address] [place] [address] [place] [address] 07/09/2025 9:00 AM EDT Medication Management [facility] [address] [place] [address] Niurka Boyd, PharmD [address] [place] [address] 07/13/2025 9:00 AM EDT Office Visit [facility] [address] [place] [address] Tarherminia Pat, OD [address] [place] [address] Health Maintenance Due Date Last Done Comments HIV Screening 1985 Lipid Panel 1985 Diabetes: Foot Exam 1995 Eye Exam 1995 Family Planning (PISQ) 2000 HPV Vaccines (1 - Male 3-dose series) 2000 Hepatitis C Screening 2003 Hepatitis A Vaccines (1 of 2 - Risk 2-dose series) 2004 Dental Oral Exam 04/24/2024 10/24/2023, 11/29/2022 Dental Prophylaxis 04/24/2024 10/24/2023, 12/12/2022 Dental X-Ray: Bitewings 10/25/2024 10/24/2023, 11/29 COVID-19 Vaccine ( season) 2025 08/20/2023, 09/20/2022, 03/13/2022, Additional history exists Influenza Vaccine (#1) 2025 , 08/20/2023, 08/20/2023, Additional history exists Diabetes: Hemoglobin A1C 07/14/2025 04/13/2025 Alcohol/Substance Use Screening 04/13/2026 04/13/2025 Depression Screening 04/13/2026 04/13/2025, 04/13/20 Disability Screening 04/13/2026 04/13/2025 SDOH Screening 04/13/2026 04/13/2025 Tobacco Screening 04/13/2026 04/13/2025 Dental X-Ray: Full Mouth 06/05/2027 06/04/2024, 11/08 DTaP/Tdap/Td Vaccines (4 - Td or Tdap) 05/12/2029 05/12/2019, 06/23/2014, 02/12/2014 Zoster Vaccines (1 of 2) 2035 RSV Patients and Patients Aged 60 years or older (1 - 1-dose 75+ series) 2060 Hepatitis B Vaccines Completed 10/24/2016, 02/14/2015, 08/02/2014 Pneumococcal Vaccine: Pediatrics (0 to 5 Years) and At-Risk Patients (6 to 49) Years Completed 11/20/2022, 06/23/2014 HIB Vaccines Aged Out No longer eligi ble based on patient's age to complete this topic IPV Vaccines Aged Out No longer eligi ble based on patient's age to complete this topic Meningococcal B Vaccine Aged Out No l onger eligible based on patient's age to complete this topic Meningococcal Vaccine Aged Out No tino shakira eligible based on patient's age to complete this topic RSV under 20 months Aged Out No longe r eligible based on patient's age to complete this topic Rotavirus Vaccines Aged Out No longer eligible based on patient's age to complete this topic Procedures Procedure Name Priority Date/Time Associated Diagnosis Comments POCT GLYCATED HEMOGLOBIN, TOTAL Routine 04/13/2025 11:36 AM EDT Diabetic nephropathy associated with type 2 diabetes mellitus ([facility]) POCT GLUCOSE Routine 04/13/2025 11:36 AM EDT Diabetic nephropathy associated with type 2 diabetes mellitus ([facility]) PANORAMIC RADIOGRAPHIC IMAGE Routine 06/04/2024 3:00 PM EDT Full PROPHYLAXIS - ADULT Routine 10/24/2023 1:00 PM EST Gingival bleeding Dental calculus BITEWINGS - 4 RADIOGRAPHIC IMAGES Routine 10/24/2023 1:00 PM EST Gingival bleeding Dental calculus PERIODIC ORAL EVALUATION - ESTABLISHED PATIENT Routine 10/24/2023 1:00 PM EST Gingival bleeding Dental calculus from Last 3 Months or Most Recently Relevant to Health Maintenance Results * (ABNORMAL) POCT HGB A1C (04/13/2025 11:36 AM EDT) Hemoglobin A1C 8.5(A) 4.0 - 5.7 % QC Media Lot # [id number] Lot# Expiration Date , Blood 04/13/2025 11:3 6 AM EDT Soha Ortiz MD POINT OF CARE AZAM T ENTER/EDIT ORDERABLES Final Result * POCT Glucose (04/13/2025 11:36 AM EDT) Glucose Blood, POC 158 60 - 200 mg/dL QC Media Lot # [id number] Lot# Expiration Date ,185 Blood Capillary blood specimen / Unknown 04/13/2025 11:36 AM EDT Soha Ortiz MD POINT OF CARE AZAM T ENTER/EDIT ORDERABLES Final Result from Last 3 Months Insurance [facility] FULL [facility] D[facility] [facility] LIMITED ADULT DENTAL - [facility] FULL (MEDICAID) Care Teams Chalk Extruding Machine Operator Relationship Specialty Start Date End Date Soha Boo MD [address] [place] [id number] PCP - General Internal Medicine 04/13/25
--- OUTSIDE RECORDS SUMMARY | 2025-06-20 07:56 | XMS_ITS | Encounter Summary ---
Author Organization [employer] Address [address] [place] [address] [address] [place] [address] Care Team Providers Care Poker Room Manager Name Role Phone Soha Boo MD Primary Care Pro vider Encounter Details Date Type Department Care Team (Late Contact Info) Description 12/24/2022 Abstract [facility] ADULT D[facility] [address] [place], [place] [phone] Shadi Haddad DDS [address] [place], [place] [phone] Social History Tobacco Use Types Packs/Day Years [...] suspected to have Coronavirus/COVID-19? No / Unsure 12/27/2022 8:08 AM EDT documented as of this encounter Plan of Treatment Upcoming Encounters Date Type Department Care Team (Late Contact Info) Description 07/07/2025 9:00 AM EDT Office Visit [facility] [address] [place] [address] Soha Boo MD [address] [place], [place] [phone] 07/09/2025 9:00 AM EDT Medication Management [facility] [address] [place] [address] Niurka Boyd, Vidal [address] [place] [address] 07/13/2025 9:00 AM EDT Office Visit [facility] OPTOMETRY [address] [place] [address] Pat Staples, OD [address] [place] [address] documented as of this encounter Visit Diagnoses Not on filedocumented in this encounter Care Teams Poker Room Manager Relationship Specialty Start Date End Date Soha Boo MD [address] [place] [address] PCP - General Internal Medicine 04/13/25 documented as of this encounter
[2025-06-20 08:12] VITALS: BP 120/82; PULSE 109; RESP 19; TEMP 37; O2SAT 96
--- NOTE | 2025-06-20 08:14 | PC.NURSE ---
Botswanan speaking quill layer used PAtient presents to ED c/o back and ABD pain rated 9/10 Patient reports that around Saturday night after work he began to feel pain all over especially in his back and ABD Denies SOB, Dizzy, nausea, vomiting, sick contacts, recent injuries Patient is diabetic POC 170, patient reports sensor fell off and hasnt been keeping track of POC but has still been using his insulin Blood collected and sent Patient slightly tachy 109bpm otherwise all other VSS Provider in to see patient Plan of care on going
[2025-06-20 08:22] LABS: Glucose, Whole Blood 170 mg/dL (60-115)
[2025-06-20 08:23] LABS: MANUAL DIFF FLAG NO
[2025-06-20 08:27] LABS: Hematocrit 43.8 % (42.0-52.0); Hemoglobin 15.0 g/dl (14.0-18.0); Imm Gran Abs Auto 0.03 X10*3/uL (0.00-0.03); Imm Gran Pct Auto 0.3 % (0.0-0.4); Lymphocytes Absolute Auto 1.4 X10*3/uL (1.2-4.9); Mean Corpuscular HGB Conc 34.2 g/dl (31.0-36.0); Mean Corpuscular Hemoglobin 30.2 pg (27.0-33.0); Mean Corpuscular Volume 88.3 fL (80.0-98.0); NRBC Abs Auto 0.000 X10*3/uL (0.0-0.012); NRBC Pct Auto 0.0 /100WBC (0.0-0.2); Platelet Count 154 X10*3/uL (160-400); Red Blood Count 4.96 X10*6/uL (4.60-5.80); White Blood Count 12.0 X10*3/uL (4.8-10.8)
--- NOTE | 2025-06-20 08:28 | ED.GENADULT ---
HPI - General Adult General Chief complaint: General Medical Stated complaint: body aches, diarrhea, back pain Time Seen by Provider: 06/20/25 08:28 History of Present Illness ED Provider: Herb ANDRADE narrative: The patient is a 40-year-old male with a history of type 2 diabetes who says that he has had abdominal symptoms for about 2 days. His symptoms began on Saturday night with loose stools and abdominal discomfort and nausea. He has also had generalized body aches and ?bone pain. ? He has thought that he might have a fever but has not taken his temperature. He has not vomited. He says he has not eaten much in the last couple of days because he feels that if he eats he immediately asked to have a loose bowel movement. There has been no blood in the stool. He says he has not been on any recent antibiotics. He does not have any abdominal surgical history. He has had no recent travel. No unusual exposures. The patient reports a history of some kind of low back fracture several years ago and that he has some chronic back pain related to this injury. The patient is primarily Japanese-speaking and was interviewed with a in-person interpreter. Related Data Home Medications ?Medication ?Instructions ?Recorded ?Confirmed atorvastatin 40 mg tablet 1 tab PO BEDTIME 02/24/21 03/09/21 dulaglutide 1.5 mg/0.5 mL 0.5 ml subcut QWEEK 02/24/21 03/09/21 subcutaneous pen injector (Trulicity) fenofibrate 54 mg tablet 1 tab PO DAILY 02/24/21 03/09/21 insulin glargine 100 unit/mL 70 unit subcut BEDTIME 02/24/21 03/09/21 subcutaneous solution (Lantus U-100 Insulin) lisinopril 30 mg tablet 1 tab PO DAILY 02/24/21 03/09/21 metformin 750 mg tablet,extended 1 tab PO BID 02/24/21 03/09/21 release 24 hr omeprazole 20 mg capsule,delayed 1 cap PO BID 02/24/21 03/09/21 release Previous Rx's ?Medication ?Instructions ?Recorded ibuprofen 600 mg tablet 600 mg PO Q6H PRN pain #30 tabs 02/24/21 oxycodone-acetaminophen 5 mg-325 1 - 2 tab PO Q4-6H PRN pain #30 02/24/21 mg tablet (Percocet) tabs cyclobenzaprine 10 mg tablet 10 mg PO TID PRN muscle spasm #14 07/03/21 tabs lidocaine 4 % topical patch 1 patch topical DAILY PRN pain #10 07/03/21 ea acetaminophen 500 mg capsule 1,000 mg (2 x 500 mg) PO Q8H PRN 06/20/25 fever or pain #14 caps Allergies Allergy/AdvReac Type Severity Reaction Status Date / Time No Known Allergies Allergy Verified 06/20/25 07:36 Review of Systems Review of Systems: Yes all other systems are reviewed and are negative [facility] Past Medical History Medical History Diabetes High blood pressure HLD (hyperlipidemia) Right groin pain Right inguinal hernia Right inguinal hernia Surgical History (System 04/14/25 @ 12:19 by Stephanie Bridges CNA) History of hernia surgery Social History Social History (System 04/14/25 @ 12:19 by Stephanie Bridges CNA) Alcohol intake: current Alcohol intake frequency: does not drink Alcohol type: beer Comment: patient states it is tolerable Second Hand Smoke Exposure: No Substance Use Type: Crack/Cocaine and Marijuana Physical Exam ED Vital Signs: Vital Signs - 24 hr 06/20/25 08:12 06/20/25 10:50 06/20/25 12:27 Temperature 98.6 F 98.6 F 98.6 F Pulse Rate 109 H 98 98 Respiratory Rate 19 16 16 Blood Pressure 120/82 126/78 126/78 Pulse Oximetry 96 97 97 Oxygen Delivery Method Room Air Room Air Room Air BMI result Body Mass Index 32.5 Const Other: The patient is awake, alert, pleasant, cooperative. He does not look obviously toxic or in distress. Orientation/consciousness: patient oriented x3 HENMT Other: The face is symmetrical. ?Mucous membranes moist. Posterior pharynx is normal. Eyes Other: Pupils are round equal, conjunctivae are clear, extraocular movements intact Neck Neck: Yes normal visual inspection, Yes full ROM and Yes no lymphadenopathy Resp Effort & Inspection: normal respiratory effort Auscultation: clear to auscultation bilaterally Cardio Rate: regular rate Rhythm: regular rhythm Heart sounds: S1 normal heart sound present and S2 normal heart sound present GI Other: The abdomen is soft. I felt he had some mild left-sided tenderness. Skin Other: The skin is dry and unremarkable General skin exam: no rashes or lesions noted Neuro General: patient oriented x3, tone normal, moves all extremities, no focal motor deficits and CN's II-XI intact bilaterally Extrem Other: There is no calf swelling or tenderness. No asymmetry. No peripheral edema. Medications Administered Discontinued Medications Generic Name Dose Route Start Last Admin Trade Name Miguel PRN Reason Stop Dose Admin Sodium Chloride 1,000 mls @ 999 mls/hr 06/20/25 09:00 06/20/25 10:12 Ns IV 06/20/25 10:00 Infused .Q1H1M JOHN Infusion Acetaminophen 1,000 mg in 100 mls @ 400 mls/hr 06/20/25 08:50 06/20/25 10:12 Ofirmev IV 06/20/25 09:04 Infused ONCE ONE Infusion Iohexol 100 ml 06/20/25 10:00 06/20/25 10:01 Iohexol 350 Mg/Ml 100 Ml Infus..Btl IV 06/20/25 10:01 85 ml ONCE ONE Administration Ketorolac Tromethamine 10 mg 06/20/25 08:50 06/20/25 09:11 Ketorolac Tromethamine 15 Mg/Ml Vial IVPUSH 06/20/25 08:51 10 mg ONCE ONE Administration Medical Decision Making Medical Decision Making [facility] Narrative: the patient is a 40-year-old male with type 2 diabetes who presents with 2 days of abdominal pain and loose stools. He also describes diffuse body pains and fever. He looked mildly unwell but not acutely toxic. He had some mild left-sided tenderness on his abdominal exam. He did not seem to have a definite acute abdomen. He had a mild elevation of his white blood count. He had a significantly elevated CRP however at 14. For this reason a CT scan of the abdomen and pelvis was done. given his abnormal lab tests I had a fairly high suspicion that he might have some conditions such as colitis. I was apprised that his CT scan was read as negative. He was treated symptomatically in the emergency room and seemed to feel better with IV fluids and pain medication. He had no ongoing loose stools in the emergency room so we were unable to collect a stool sample. Overall I had no definite explanation for his symptoms other than possibly some kind of viral gastrointestinal indisposition. since he felt better and looked well and had a negative CT scan I felt he could be discharged with symptomatic instructions. I reviewed the images of the CT scan and could not see any obvious signs of a previous spinal fracture. Because he had a significantly elevated CRP blood cultures have been sent and I also added on an ESR. The ESR however was not similarly elevated. He is advised follow-up with his PCP at the [facility]. Return if worse. Lab Data 06/20/25 08:06 06/20/25 08:06 Labs: Lab Results 06/20/25 06/20/25 Range/Units 08:06 08:11 WBC 12.0 H (4.8-10.8) X10*3/uL RBC 4.96 (4.60-5.80) X10*6/uL Hgb 15.0 (14.0-18.0) g/dl Hct 43.8 (42.0-52.0) % MCV 88.3 (80.0-98.0) fL MCH 30.2 (27.0-33.0) pg MCHC 34.2 (31.0-36.0) g/dl RDW 12.1 (11.0-16.0) % Plt Count 154 L (160-400) X10*3/uL MPV 11.3 (9.4-12.4) fL Immature Gran % (Auto) 0.3 (0.0-0.4) % Neut % (Auto) 78.5 H (45-73) % Lymph % (Auto) 11.9 L (20-40) % Wilcox % (Auto) 7.8 (2-11) % Eos % (Auto) 1.2 (0-4) % Baso % (Auto) 0.3 (0-2) % Lymph # (Auto) 1.4 (1.2-4.9) X10*3/uL Wilcox # (Auto) 0.9 (0.1-1.2) X10*3/uL Eos # (Auto) 0.1 (0.0-0.4) X10*3/uL Baso # (Auto) 0.0 (0.0-0.2) X10*3/uL Abs Immat Gran (auto) 0.03 (0.00-0.03) X10*3/uL Absolute Neuts (auto) 9.4 H (2.0-8.3) x10*3/uL Absolute Nucleated RBC 0.000 (0.0-0.012) X10*3/uL Nucleated RBC % (auto) 0.0 (0.0-0.2) /100WBC ESR 18 H (0-15) MM/HR Sodium 135 (135-145) mmol/L Potassium 3.7 (3.3-5.1) mmol/L Chloride 104 (96-108) mmol/L Carbon Dioxide 20 L (22-29) mmol/L Anion Gap 15 (12-20) BUN 12 (9-16) mg/dL Creatinine 0.56 (0.5-1.4) mg/dL Estim Creat Clear Calc 204.2 Estimated GFR > 60 POC Glucose 170 H (60-115) mg/dL Random Glucose 173 H (60-115) mg/dL Calcium 8.9 D (8.4-10.2) mg/dL Total Bilirubin 1.2 H (0.0-1.0) mg/dL AST 20 (5-37) U/L ALT 27 (0-40) U/L Alkaline Phosphatase 65 (39-117) U/L C-Reactive Protein 14.92 H (< or = 0.50) mg/dL Total Protein 7.5 (6.5-8.0) g/dL Albumin 4.2 (3.5-5.0) g/dL COVID-19 (SAAD) Negative (Negative) COVID-19 Clin Com See Note Influenza Type A (ALICE) Negative (Negative) Influenza Type B (ALICE) Negative (Negative) Influenza A & B Note See Note Discharge Plan Discharge Clinical Impression: Diarrhea, Abdominal pain, Body aches, Back pain Patient Disposition: Home, Self-Care Additional Instructions: The CAT scan that was done today does not show any concerning findings. Please plan on drinking a lot of fluids at home. Use acetaminophen (Tylenol) as needed for pain. Continue your usual medications otherwise. Please contact your regular doctor's office tomorrow morning to set up a follow up appointment to discuss this episode further. Return to the emergency room if you feel significantly worse. Prescriptions: New acetaminophen 500 mg capsule 1,000 mg PO Q8H PRN (Reason: fever or pain) Qty: 14 0RF No Action atorvastatin 40 mg tablet 1 tab PO BEDTIME Lantus U-100 Insulin 100 unit/mL solution 70 unit subcut BEDTIME lisinopril 30 mg tablet 1 tab PO DAILY omeprazole 20 mg capsule,delayed release(DR/EC) 1 cap PO BID metformin 750 mg tablet extended release 24 hr 1 tab PO BID fenofibrate 54 mg tablet 1 tab PO DAILY Trulicity 1.5 mg/0.5 mL pen injector 0.5 ml subcut QWEEK Patient Comments: patient takes on tuesdays oxycodone-acetaminophen [Percocet] 5-325 mg tablet 1 - 2 tab PO Q4-6H PRN (Reason: pain) Qty: 30 0RF ibuprofen 600 mg tablet 600 mg PO Q6H PRN (Reason: pain) Qty: 30 0RF cyclobenzaprine 10 mg tablet 10 mg PO TID PRN (Reason: muscle spasm) Qty: 14 0RF lidocaine 4 % adhesive patch,medicated 1 patch topical DAILY PRN (Reason: pain) Qty: 10 0RF Rx Instructions: may leave on for up to 12 hrs Referrals: Soha Boo MD [Primary Care Provider, Internal Medicine] Stand Alone Forms: Work/School Release Interventions: ED Discharge Assessment Last Done: 06/20/25 12:27 Discharge Date/Time: 06/20/25 12:49 Print Language: Japanese
[2025-06-20 08:41] LABS: Alanine Aminotransferase 27 U/L (0-40); Albumin Level 4.2 g/dL (3.5-5.0); Alkaline Phosphatase 65 U/L (39-117); Anion Gap 15 (12-20); Aspartate Amino Transferase 20 U/L (5-37); Blood Urea Nitrogen 12 mg/dL (9-16); Calcium 8.9 mg/dL (8.4-10.2); Carbon Dioxide 20 mmol/L (22-29); Chloride 104 mmol/L (96-108); Creatinine Clr Calc Pharmacy 204.2; Estimated Glomerular Filt Rate > 60; Potassium 3.7 mmol/L (3.3-5.1); Sodium 135 mmol/L (135-145); Total Protein 7.5 g/dL (6.5-8.0)
[2025-06-20 08:47] LABS: COVID-19 Test Negative (Negative); IDNOW Serial# 55D5AD1C; IDNOW Serial# 58CA691E; Influenza B2 Negative (Negative)
[2025-06-20] MEDS: iohexoL 350 MG/ML 100 ML INFUS..BTL IV (10:01)
[2025-06-20 10:50] VITALS: BP 126/78; PULSE 98; RESP 16; TEMP 37; O2SAT 97
[2025-06-20 12:27] VITALS: BP 126/78; PULSE 98; RESP 16; TEMP 37; O2SAT 97
== END 2025-06-20 12:49 | disposition home or self-care (01) ==
PROVIDERS: Emergency Provider Emergency Medicine; PCP Student in an Organized Health Care Education/Training Program
DX: M79.10 Myalgia, unspecified site (principal); M54.50 Low back pain, unspecified; R10.814 Left lower quadrant abdominal tenderness; R50.9 Fever, unspecified; R10.2 Pelvic and perineal pain; Z79.899 Other long term (current) drug therapy; Z11.52 Encounter for screening for COVID-19; Z03.818 Encounter for observation for suspected exposure to other biological agents ruled out
CPT/HCPCS: 74177; 80053; 82947; 85025; 85652; 86140; 87040; 87502; 87635; 96365; 96375; 99284; 99285; J0131; J1885; Q9967

== ENCOUNTER → 2025-06-20 08:50 | Outpatient (BNV) | payer MEDICAID, SELFPAY | PROVIDERS: Emergency Provider Emergency Medicine; PCP Student in an Organized Health Care Education/Training Program; Visit Provider Specialist | DX: R10.32 Left lower quadrant pain (principal) | CPT/HCPCS: 74177 ==

== ENCOUNTER 2025-06-30 08:11 | Outpatient (REF) | payer MEDICAID, OTHER, SELFPAY ==
--- OUTSIDE RECORDS SUMMARY | 2025-06-30 08:49 | XMS_ITS | Encounter Summary ---
Author Organization [employer] Address [address] [facility] 7t [place] [address] Care Team Providers Care Cathode Ray Tube Assembler Name Role Phone Soha Boo MD Primary Care Pro vider Encounter Details Date Type Department Care Team (Late Contact Info) Description 12/11/2022 Abstract [facility] ADULT DENTAL [address] [place], [place] [phone] Shadi Haddad DDS [address] [place], [place] [phone] Social History Tobacco Use Types Packs/Day Years [...] Description 07/07/2025 9:00 AM EDT Office Visit [facility] [address] [place] [address] Soha Boo MD [address] [place], [place] [phone] 07/09/2025 9:00 AM EDT Medication Management [facility] [address] [place] [address] Niurka Boyd, Vidal [address] [place] [address] 07/13/2025 9:00 AM EDT Office Visit [facility] OPTOMETRY [address] [place], [place] [phone] Pat Staples, OD [address] [place] [address] documented as of this encounter Visit Diagnoses Not on filedocumented in this encounter Care Teams Cathode Ray Tube Assembler Relationship Specialty Start Date End Date Soha Boo MD [address] [place] [address] PCP - General Internal Medicine 04/13/25 documented as of this encounter
--- OUTSIDE RECORDS SUMMARY | 2025-06-30 08:49 | XMS_ITS | Encounter Summary ---
Author Organization [employer] Address [address] [facility] 7t [place] [address] Care Team Providers Care Welding Machine Operator Electron Beam Name Role Phone Soha Boo MD Primary Care Pro vider Encounter Details Date Type Department Care Team ([facility] Contact Info) Description 04/17/2023 Abstract [facility] ADULT D[facility] [address] [place] [address] Tu Simon, DMD [address] [place], [place] [phone] Social History Tobacco Use Types Packs/Day Years [...] Description 07/07/2025 9:00 AM EDT Office Visit [facility] [address] [place] [address] Soha Boo MD [address] [place], [place] [phone] 07/09/2025 9:00 AM EDT Medication Management [facility] [address] [place] [address] Niurka Boyd, Vidal [address] [place] [address] 07/13/2025 9:00 AM EDT Office Visit [facility] OPT[facility] [address] [place] [address] Pat Staples, OD [address] [place] [address] documented as of this encounter Visit Diagnoses Not on filedocumented in this encounter Care Teams Welding Machine Operator Electron Beam Relationship Specialty Start Date End Date Soha Boo MD [address] [place] [address] PCP - General Internal Medicine 04/13/25 documented as of this encounter
--- OUTSIDE RECORDS SUMMARY | 2025-06-30 08:49 | XMS_ITS | Encounter Summary ---
Author Organization [employer] Address [address] [facility] 7t [place] [address] Care Team Providers Care Bricklayer Name Role Phone Soha Boo MD Primary Care Pro vider Encounter Details Date Type Department Care Team (Late Contact Info) Description 12/19/2022 Abstract [facility] ADULT DENTAL [address] [place], [place] [phone] Shadi Haddad DDS [address] [place], [place] [phone] Social History Tobacco Use Types Packs/Day Years [...] 9:00 AM EDT Office Visit [facility] [address] [place] [address] Soha Boo MD 230 [place], [place] [phone] 07/09/2025 9:00 AM EDT Medication Management [facility] [address] [place] [address] Niurka Boyd, Vidal 230 [place] [address] 07/13/2025 9:00 AM EDT Office Visit [facility] OPTOMETRY [address] [place], [place] [phone] Pat Staples, OD [address] [place] [address] documented as of this encounter Visit Diagnoses Not on filedocumented in this encounter Care Teams Bricklayer Relationship Specialty Start Date End Date Soha Boo MD 230 [place] [address] PCP - General Internal Medicine 04/13/25 documented as of this encounter
--- OUTSIDE RECORDS SUMMARY | 2025-06-30 08:49 | XMS_ITS | Clinical Summary ---
Author Organization [employer] Address [address] [facility] 7t [place] [address] Care Team Providers Care Stone Mill Operator Name Role Phone Soha Boo MD Primary Care Pro vider Allergies No known active allergies Medications chlorhexidine (Peridex) 0.12 % solutionIndicati ons:Periodontal disease Rinse with capful (15 mL) for 30 seconds morning and night, after brushing teeth. Use for 2 weeks. Do not use for more than 2 weeks as it can cause tooth staining. 473 mL 3 Active Continuous Glucose Prepress Specialist (FreeStyle [place] 3 [place]) deviceIndication s:Annual physical exam 1 each Once [...] 2 diabetes mellitus without complication, unspecified whether superintendent terminal insulin use ([facility]) Use to test blood sugar 2 times daily 100 each 12 05/20/2025 4:40 PM EDT 5 05/18/20 26 Active Lancets miscIndications: Type 2 diabetes mellitus without complication, unspecified whether custodial insulin use ([facility]) Use to test blood sugar 2 times daily 100 each 05/20/2025 4:46 PM EDT 5 Active Alcohol Swabs 70 % padsIndications: Type 2 diabetes mellitus without complication, unspecified whether custodial insulin use ([facility]) Use to test blood sugar 2 times daily 100 each 05/20/2025 4:43 PM EDT 5 Active Blood Glucose Monitoring Suppl (FreeStyle [place]ite) w/Device kitIndications:T ype 2 diabetes mellitus without complication, unspecified whether custodial insulin use ([facility]) Use to test blood sugar [...] Encounters Date Type Department Care Team Description 06/20/2025 Orders Only GENERIC EXTERNAL DATA DEPARTMENT Provider, Generic External Data 06/18/2025 9:30 AM EDT Clinical Support [facility] [place] [address] Marlene Hoover RN Type 2 diabetes mellitus without complication, unspecified whether custodial insulin use ([facility]) 06/18/2025 Travel 05/18/2025 9:30 AM EDT Clinical Support [facility] [place] [address] Marlene Hoover RN Type 2 diabetes mellitus without complication, with long-term current use of insulin (CMS/[facility]) 05/18/2025 Refill [facility] [place] [address] Soha Boo MD Type 2 diabetes mellitus without complication, unspecified whether custodial insulin use (CMS/HCC) 05/18/2025 Travel 04/30/2025 Telephone [facility] [place] [address] Soha Boo MD sep recall 04/16/2025 10:00 AM EDT Clinical Support [facility] [place] [address] Marlene Hoover RN Type 2 diabetes mellitus without complication, unspecified whether custodial insulin use (CMS/HCC) 04/16/2025 Travel 04/14/2025 Telephone [facility] [place] [address] Soha Boo MD Prior Authorization 04/13/2025 10:15 AM EDT Office Visit [facility] [place] [address] Soha Boo MD Blurry vision, bilateral (Primary Dx); Diabetic nephropathy associated with type 2 diabetes mellitus (CMS/HCC); Type 2 diabetes mellitus without complication, with long-term current use of insulin ([facility]); Annual physical exam; Hyperlipidemia, unspecified hyperlipidemia type; Class 1 obesity; Health care maintenance; Hypertension, unspecified type; Alcohol abuse; Hx of gastroesophageal reflux (GERD) 04/13/2025 Travel 04/12/2025 Telephone [facility] MEDICINE [address] [place] [address] Suzette Frost MA chart prep 04/05/2025 Patient Outreach [facility] [address] [place] [address] Soha Boo MD Pre-visit Planning ([facility] unable to reach [facility] ) from Last 3 Months Immunizations Immunization [...] Visit [facility] MEDICINE [address] [place] [address] Soha Boo MD [address] [place] [address] 07/09/2025 9:00 AM EDT Medication Management [facility] MEDICINE [address] [place] [address] Niurka Boyd, PharmD 230 [place] [address] 07/13/2025 9:00 AM EDT Office Visit [facility] OPTOMETRY [address] [place] [address] Pat Staples, OD [address] [place] [address] Health Maintenance Due Date Last Done Comments [...] 04/13/2026 04/13/2025 Depression Screening 04/13/2026 04/13/2025, 04/13/20 25 Disability Screening 04/13/2026 04/13/2025 SDOH Screening 04/13/2026 [...] Procedure Name Priority Date/Time Associated Diagnosis Comments BLOOD CULTURE (SECOND) Routine 12:00 PM EDT BLOOD CULTURE (FIRST) Routine 06/20/2025 12:[address] ABDOMEN PELVIS W CONTRAST Routine 06/20/2025 11:07 AM EDT GLUCOSE, WHOLE BLOOD Routine 06/20/2025 8:11 AM EDT SED RATE BY MODIFIED WESTERGREN Routine 06/20/2025 8:06 AM EDT COVID-19 ID NOW (TY) Routine 06/20/2025 8:06 AM EDT COMPREHENSIVE METABOLIC PANEL Routine 06/20/2025 8:06 AM EDT CBC WITH AUTO DIFFERENTIAL Routine 06/20/2025 8:06 AM EDT INFLUENZA A B2 ID NOW (TY) Routine 06/20/2025 8:06 AM EDT POCT GLYCATED HEMOGLOBIN, TOTAL Routine 04/13/2025 11:36 AM EDT Diabetic nephropathy associated with type 2 diabetes mellitus ([facility]) POCT GLUCOSE Routine 04/13/2025 11:36 AM EDT Diabetic nephropathy associated with type 2 diabetes mellitus ([facility]) PANORAMIC RADIOGRAPHIC IMAGE Routine 06/04/2024 [...] Recently Relevant to Health Maintenance Results * Blood Culture (First) (06/20/2025 12:00 PM EDT) Blood Venous blood specimen / Unknown 06/20/2025 12:00 PM EDT 06/20/2025 12:03 PM EDT Comment:Blood Narrative [facility] - 06/25/2025 2:03 PM EDT Blood Culture (First) No growth after 5 days. Specimen Source: Blood us Generic External Data Provider LAB MICROBIOLOGY - GENERAL ORDERABLES Final Result [facility] [address] [place] [address] [phone] * Blood Culture (Second) (06/20/2025 12:00 PM EDT) Blood Venous blood specimen / Unknown 06/20/2025 12:00 PM EDT 06/20/2025 12:03 PM EDT Comment:Blood Narrative [facility] - 06/25/2025 2:03 PM EDT Blood Culture (Second) No growth after 5 days. Specimen Source: Blood us Generic External Data Provider LAB MICROBIOLOGY - GENERAL ORDERABLES Final Result [facility] [address] [place] [phone] * CT Abdomen Pelvis w/ Contrast (06/20/2025 11:07 AM EDT) Anatomical Region Laterality Modality Body, Pelvis, Abdomen Computed T omography 06/20/2025 11:0 7 AM EDT Narrative 06/20/2025 11:09 AM EDT [address] [address] [address] Scan Report Signed Patient: Marlon Sanchez MR# : [id number] : 1985 Acct:[id number] Age/Sex: 40 / M ADM Date: 06/20/25 Loc: HO.ED Attending Dr: Ordering Physician: Joaquín Estevez MD Date of Service: 06/20/25 Procedure(s): CT abdomen pelvis w IV con Accession Number(s): [id number] cc: Joaquín Estevez MD; Soha Boo MD Report Number: [id number]: Total DLP = 580.00 mGy-cm Reason for Exam: left sided pain and tenderness CLINICAL HISTORY: left sided pain and tenderness CT abdomen and pelvis with contrast Comparison: None provided Findings: No consolidation or effusion. The gallbladder and solid organs are within normal limits. No renal stones. No bowel obstruction, pneumoperitoneum, or pneumatosis. Pelvic contents unremarkable. Normal appendix. The bones are intact. IMPRESSION: No acute findings. This document has been electronically signed by: Camilo Amanda MD on 06/20/2025 11:07:18 Dictated By: Camilo Amanda MD Signed By: <Electronically signed by Camilo Amanda MD in OV> 06/20/25 1108 DD/ 110 TD/TT: 06/20/25 110 Process Architect: Procedure Note Donotuseinterpreter, Image - 06/20/[address] [address] [address] Scan Report Signed Patient: Mason Sanchez# : [id number] : 1985Acct:[id number] Age/Sex: 40 / MADM Date: 06/20/25 Loc: HO.ED Attending Dr: Ordering Physician: Joaquín Estevez MD Date of Service: 06/20/25 Procedure(s): CT abdomen pelvis w IV con Accession Number(s): [id number] cc: Joaquín Estevez MD; Soha Boo MD Report Number: [id number]: Total DLP = 580.00 mGy-cm Reason for Exam: left sided pain and tenderness CLINICAL HISTORY: left sided pain and tenderness CT abdomen and pelvis with contrast Comparison: None provided Findings: No consolidation or effusion. The gallbladder and solid organs are within normal limits. No renal stones. No bowel obstruction, pneumoperitoneum, or pneumatosis. Pelvic contents unremarkable. Normal appendix. The bones are intact. IMPRESSION: No acute findings. This document has been electronically signed by: Camilo Amanda MD on 06/20/2025 11:07:18 Dictated By: Camilo Amanda MD Signed By: <Electronically signed by Camilo Amanda MD in OV> 06/20/25 1108 DD/ 1107 TD/TT: 06/20/25 1107 Process Architect: [facility] External Provider IMG CT PROCEDURES Edited Result - Final * (ABNORMAL) Glucose, Whole Blood (06/20/2025 8:11 AM EDT) Glucose, Whole Blood 170(H) 60 - 115 mg/dL [facility] Comment:METER #: [id number] 06/20/2025 8:11 AM EDT 06/20/2025 8:21 AM EDT Generic External Data Provider LAB BLOOD ORDERAB LES Final Result [facility] [address] [place] [phone] [phone] * Influenza A B2 ID NOW (Ty) (06/20/2025 8:06 AM EDT) IDNOW SERIAL# [id number] [facility] Influenza A Negative Negative [facility] Influenza B2 Negative Negative [facility] Influenza A B2 Note See Note [facility] Comment:The Ty ID NOW In fluenza A B2 test is used for thequalitative detection of influenza A and B from patientswith signs and symptoms of respiratory infection.Negative results do not preclude influenza virus infectionand should not be used as the sole basis for diagnosis,treatment or other patient management decisions.There is a risk of false negative results due to thepresence of variants in the viral targets of the assay, lowlevels of virus in the specimen and co- infection withRespiratory Syncytial Virus. 06/20/2025 8:06 AM EDT 06/20/2025 8:25 AM EDT Generic External Data Provider LAB MICROBIOLOGY - GENERAL ORDERABLES Final Result [facility] [address] [place] [phone] * COVID-19 ID NOW (TY) (06/20/2025 8:06 AM EDT) IDNOW SERIAL# [id number] [facility] COVID-19 TEST Negative Negative [facility] COVID-19 NOTE See Note [facility] Comment: Results are for the identification of SARS-CoV2 RNA. TheSARS-CoV2 RNA is generally detectable in respiratory samplesduring the acute phase of infection. Positive results areindicative of the presence of SARS-CoV-2 RNA; clinicalcorrelation with patient history and other diagnosticinformation is necessary to determine patient infectionstatus. Positive results do not rule out bacterial infectionor co- infection with other viruses.Testing facilities within the [facility] and itsterritories are required to report all positive results tothe appropriate public health authorities.Negative results should be treated as presumptive and, ifinconsistent with clinical signs and symptoms or necessaryfor patient management, should be tested with differentauthorized or cleared molecular tests. Negative results donot preclude SARS-CoV2 RNA infection and should not be usedas the sole basis for patient management decisions. Negativeresults should be considered in the context of a patient'srecent exposures, history and the presence of clinical signsand symptoms consistent with COVID-19.This test has been authorized by the FDA under an EmergencyUse Authorization (EUA) for use by authorized laboratories.Testing performed on the [employer] NOW utilizing NAAT. 06/20/2025 8:06 AM EDT 06/20/2025 8:25 AM EDT us Generic External Data Provider LAB MOLECULAR KECIA GNOSTICS ORDERABLES Final Result [facility] [address] [place] [phone] * (ABNORMAL) CBC auto differential (06/20/2025 8:06 AM EDT) White Blood Count 12.0(H) 4.8 - 10.8 X10*3/uL [facility] Red Blood Count 4.96 4.60 - 5.80 X10*6/uL [facility] Hemoglobin 15.0 14.0 - 18.0 g/dl [facility] Hematocrit 43.8 42.0 - 52.0 % [facility] Mean Corpuscular Volume 88.3 80.0 - 98.0 fL [facility] Mean Corpuscular Hemoglobin 30.2 27.0 - 33.0 pg [facility] Mean Corpuscular HGB Conc 34.2 31.0 - 36.0 g/dl [facility] Red Cell Distribution Width 12.1 11.0 - 16.0 % [facility] Platelet Count 154(L) 160 - 400 X10*3/uL [facility] Mean Platelet Volume 11.3 9.4 - 12.4 fL [facility] Neutrophils Percent Auto 78.5(H) 45 - 73 % [facility] Imm Gran Pct Auto 0.3 0.0 - 0.4 % [facility] Lymphocytes Percent Auto 11.9(L) 20 - 40 % [facility] Monocytes Percent Auto 7.8 2 - 11 % [facility] Eosinophils Percent Auto 1.2 0 - 4 % [facility] Basophils Percent Auto 0.3 0 - 2 % [facility] NRBC Pct Auto 0.0 0.0 - 0.2 /100WBC [facility] Neutrophils Absolute Auto 9.4(H) 2.0 - 8.3 x10*3/uL [facility] Imm Gran Abs Auto 0.03 0.00 - 0.03 X10*3/uL [facility] Lymphocytes Absolute Auto 1.4 1.2 - 4.9 X10*3/uL [facility] Monocytes Absolute Auto 0.9 0.1 - 1.2 X10*3/uL [facility] Eosinophils Absolute Auto 0.1 0.0 - 0.4 X10*3/uL [facility] Basophils Absolute Auto 0.0 0.0 - 0.2 X10*3/uL [facility] NRBC Abs Auto 0.000 0.0 - 0.012 X10*3/uL [facility] 06/20/2025 8:06 AM EDT 06/20/2025 8:21 AM EDT us Generic External Data Provider LAB BLOOD ORDERAB LES Final Result [facility] [address] [place] [phone] * (ABNORMAL) Sed Rate by Modified Gorge (06/20/2025 8:06 AM EDT) Erythrocyte Sedimentation Rate 18(H) 0 - 15 MM/HR [facility] Comment:Patients with polycy themia and many hemoglobin abnormalitiesmay have depressed sed rates whereas patients with anemiamay have elevated sed rates. 06/20/2025 8:06 AM EDT 06/20/2025 12:04 PM EDT us Generic External Data Provider LAB BLOOD ORDERAB LES Final Result [facility] [address] [place] [phone] * (ABNORMAL) Comprehensive Metabolic Panel (06/20/2025 8:06 AM EDT) Sodium 135 135 - 145 mmol/L [facility] Potassium 3.7 3.3 - 5.1 mmol/L [facility] Chloride 104 96 - 108 mmol/L [facility] Carbon Dioxide 20(L) 22 - 29 mmol/L [facility] Anion Gap 15 12 - 20 [facility] Urea Nitrogen (BUN) 12 9 - 16 mg/dL [facility] Creatinine, Serum 0.56 0.5 - 1.4 mg/dL [facility] Creatinine Clr Calc Pharmacy 204.2 [facility] Comment:eGFR (calculated fro m the MDRD study equation) and eCrCl(calculated from the Cockcroft-Gault equation) are based ondifferent parameters and may not yield comparable results.If eCrCl result is absurd, please check patient'sheight/weight. Estimated Glomerular Filt Rate >60 [facility] Comment:Chronic Kidney Disea se: Estimated GFR < 60 mL/min/1.87e5Rbmkjj Kidney Disease: Estimated GFR < 15 mL/min/1.73m2 Glucose 173(H) 60 - 115 mg/dL [facility] Calcium 8.9 8.4 - 10.2 mg/dL [facility] Bilirubin, Total 1.2(H) 0.0 - 1.0 mg/dL [facility] Aspartate Amino Transferase 20 5 - 37 U/L [facility] Alanine Aminotransferase 27 0 - 40 U/L [facility] Total Protein 7.5 6.5 - 8.0 g/dL [facility] Albumin Level 4.2 3.5 - 5.0 g/dL [facility] Alkaline Phosphatase 65 39 - 117 U/L [facility] 06/20/2025 8:06 AM EDT 06/20/2025 8:21 AM EDT us Generic External Data Provider LAB BLOOD ORDERAB LES Final Result [facility] [address] [place] [phone] * (ABNORMAL) POCT HGB A1C (04/13/2025 11:36 AM EDT) Hemoglobin A1C 8.5(A) 4.0 - 5.7 % QC Media Lot # [id number] Lot# Expiration Date , Blood 04/13/2025 11:3 6 AM EDT us Soha Ortiz MD POINT OF CARE AZAM T ENTER/EDIT ORDERABLES Final Result * POCT Glucose (04/13/2025 11:36 AM EDT) Glucose Blood, POC 158 60 - 200 mg/dL QC Media Lot # [id number] Lot# Expiration Date ,506 Blood Capillary blood specimen / Unknown 04/13/2025 11:36 AM EDT us Soha Ortiz MD POINT OF CARE AZAM T ENTER/EDIT ORDERABLES Final Result from Last 3 Months Insurance [facility] [place] [facility] ADULT DENT[facility] - [facility] FULL (MEDICAID) Care Teams Stone Mill Operator Relationship Specialty Start Date End Date Soha Boo MD [address] [place] [phone] PCP - General Internal Medicine 04/13/25
--- OUTSIDE RECORDS SUMMARY | 2025-06-30 08:49 | XMS_ITS | Clinical Summary ---
Author Organization [facility] ity Address [address] [place] [address] Care Team Providers Care Adobe Layer Name Role Phone Unavailable Primary Care Provider [...]
--- OUTSIDE RECORDS SUMMARY | 2025-06-30 08:49 | XMS_ITS | Encounter Summary ---
Author Organization [employer] Address [address] [place] [address] 7[address] [place] [address] Care Team Providers Care [employer] Flatbed Driver Name Role Phone Soha Boo MD Primary Care Pro vider Encounter Details Date Type Department Care Team (Late Contact Info) Description 12/24/[address] [facility] ADULT D[facility] [address] [place], [place] [phone] Shadi Haddad DDS [address] [place], [place] [phone] Social History Tobacco Use Types Packs/Day Years [...] Description 07/07/2025 9:00 AM EDT Office Visit [facility] MEDICINE [address] [place] [address] Soha Boo MD [address] [place], [place] [phone] 07/09/2025 9:00 AM EDT Medication Management [facility] MED[facility] [address] [place] [address] Niurka Boyd, Vidal [address] [place] [address] 07/13/2025 9:00 AM EDT Office Visit [facility] OPTOMETRY [address] [place] [address] Pat Staples, OD [address] [place] [address] documented as of this encounter Visit Diagnoses Not on filedocumented in this encounter Care Teams [employer] Company Flatbed Driver Relationship Specialty Start Date End Date Soha Boo MD [address] [place] [address] PCP - General Internal Medicine 04/13/25 documented as of this encounter
[2025-06-30 11:47] LABS: Hematocrit 41.8 % (42.0-52.0); Hemoglobin 14.2 g/dl (14.0-18.0); Mean Corpuscular HGB Conc 34.0 g/dl (31.0-36.0); Mean Corpuscular Hemoglobin 30.2 pg (27.0-33.0); Mean Corpuscular Volume 88.9 fL (80.0-98.0); NRBC Abs Auto 0.000 X10*3/uL (0.0-0.012); NRBC Pct Auto 0.0 /100WBC (0.0-0.2); Platelet Count 262 X10*3/uL (160-400); Red Blood Count 4.70 X10*6/uL (4.60-5.80); White Blood Count 10.0 X10*3/uL (4.8-10.8)
[2025-06-30 12:28] LABS: Folate 10.7 ng/mL (> or = 4.0); Vitamin B12 641 pg/mL (200-900)
[2025-06-30 12:33] LABS: Alanine Aminotransferase 37 U/L (0-40); Albumin Level 4.3 g/dL (3.5-5.0); Alkaline Phosphatase 118 U/L (39-117); Anion Gap 11 (12-20); Aspartate Amino Transferase 44 U/L (5-37); Blood Urea Nitrogen 15 mg/dL (9-16); Calcium 8.6 mg/dL (8.4-10.2); Carbon Dioxide 25 mmol/L (22-29); Chloride 104 mmol/L (96-108); Cholesterol 113 mg/dL (<200); Estimated Glomerular Filt Rate > 60; HDL Cholesterol 32 mg/dL (>40); Potassium 4.1 mmol/L (3.3-5.1); Sodium 136 mmol/L (135-145); Total Protein 7.6 g/dL (6.5-8.0); Triglycerides 647 mg/dL (<150)
[2025-06-30 12:41] LABS: Hemoglobin A1C 366.6937 umol/L; Total Hemoglobin (HGBA1C) 5281.6930 umol/L
[2025-06-30 13:08] LABS: Microalbum/Creatinine Ratio Ur 39.0 ug/mg cr (<30)
[2025-06-30 13:24] LABS: CT PCR Urine NOT DETECTED (Not Detect.); NG PCR Urine NOT DETECTED (Not Detect.)
[2025-07-01 03:54] LABS: Syphilis Screen Nonreactive (Nonreactive)
[2025-07-01 04:21] LABS: HBS Num1 63.10 mIU/mL (0-7.99); HBc Num1 0.03 S/CO (0.00-0.79); HBsAGNum1 0.44 S/CO (0.00-0.99); HIV Num 1 0.06 S/CO (0.00-0.99); Hepatitis B Surface Antigen Negative (Negative); ~HepC Num1 0.93 S/CO (0.00-0.79); ~Hepatitis B Surface Antibody REACTIVE (Nonreactive)
[2025-07-01 05:03] LABS: ~HepC Num2 0.81; ~HepC Num3 0.83; ~Hepatitis C Antibody GRAYZONE (Nonreactive)
[2025-07-01 18:28] LABS: Rubeola IgG (Measles) 26.40 AU/mL
[2025-07-03 07:58] LABS: TS Negative Control Passed; TS Panel A 0; TS Panel B 0; TS Positive Control Passed; TSpotTB Negative (Negative)
[2025-07-05 15:23] LABS: HCV Log PCR <1.18 NOT DETECTED Log IU/mL (NOT DETECTED); HepC Viral Load <15 NOT DETECTED IU/mL (NOT DETECTED)
== END 2025-06-30 08:12 | disposition home or self-care (01) ==
LOC: HO.HHCL 08:11
PROVIDERS: PCP Student in an Organized Health Care Education/Training Program; Visit Provider Student in an Organized Health Care Education/Training Program
DX: Z11.3 Encounter for screening for infections with a predominantly sexual mode of transmission (principal); Z11.8 Encounter for screening for other infectious and parasitic diseases; Z01.84 Encounter for antibody response examination; Z11.59 Encounter for screening for other viral diseases; Z11.1 Encounter for screening for respiratory tuberculosis
CPT/HCPCS: 36415; 80053; 80061; 82043; 82306; 82570; 82607; 82746; 83036; 84443; 85027; 86481; 86704; 86706; 86735; 86762; 86765; 86780; 86803; 87340; 87389; 87491; 87522; 87591